=== PATIENT | male | born 1975 | race Caucasian/White ===

== ENCOUNTER 2016-11-20 14:04 | Emergency (ER) | payer BC, OTHER ==
[2016-11-20 14:09] VITALS: BP 137/99
--- NOTE | 2016-11-20 15:21 | ED ---
Back Pain - HPI Summary HPI Summary: 40 M presents with acute on chronic back pain for a month. He has had many back surgeries with a disk laminectomy and TEN device placed. Said pain is the same is the same as before surgery. The pain radiates down his right leg. Denies any urinary or fecal incontinence or saddle anaesthesia. He has tried lidocaine patch, TENS device, muscle relaxers, Tylenol, and ibuprofen. His primary is away for the week. His primary gave him norco 10 and they helped. He is going to be following up with a back specialist in two weeks. - History of Current Complaint Chief Complaint: EDBackInjuryPain Stated Complaint: BACK PAIN Time Seen by Provider: 11/20/16 14:57 Pain Intensity: 9 - Allergies/Home Medications Allergies/Adverse Reactions: Allergies Allergy/AdvReac Type Severity Reaction Status Date / Time Shellfish Allergy Allergy Severe Anaphylatic Verified 09/22/15 10:43 Shock PMH/Surg Hx/FS Hx/Imm Hx Endocrine/Hematology History: Reports: Hx Diabetes Respiratory History: Denies: Hx Asthma Musculoskeletal History: Reports: Hx Back Problems Psychiatric History: Reports: Hx Depression - Cymbalta - Surgical History Surgery Procedure, Year, and Place: Nerve stimulator. spinal fusion. bilateral carpal tunnel Infectious Disease History: No Infectious Disease History: Denies: Hx Clostridium Difficile, Hx Hepatitis, Hx Human Immunodeficiency Virus (HIV), Hx of Known/Suspected MRSA, Hx Shingles, Hx Tuberculosis, Hx Known/ Suspected VRE, Hx Known/Suspected VRSA, History Other Infectious Disease, Traveled Outside the [place] in Last 30 Days - Family History Known Family History: Positive: Cardiac Disease - Social History Alcohol Use: None Alcohol Amount: sober x 8 years Substance Use Type: Reports: Prescribed Substance Use Comment - Amount & Last Used: jayde Smoking Status (MU): Light Every Day Tobacco Smoker Type: Cigarettes Amount Used/How Often: 1/2 PPD Length of Time of Smoking/Using Tobacco: 25 years Have You Smoked in the Last Year: Yes Review of Systems Negative: Fever Negative: Cough Negative: Abdominal Pain Positive: Myalgia - back pain All Other Systems Reviewed And Are Negative: Yes Physical Exam Triage Information Reviewed: Yes Vital Signs On Initial Exam: Initial Vitals Temp Pulse Resp BP Pulse Ox 98.2 F 84 16 137/99 99 11/20/16 14:06 11/20/16 14:06 11/20/16 14:06 11/20/16 14:06 11/20/16 14:06 Vital Signs Reviewed: Yes Appearance: Positive: Well-Appearing Skin: Positive: Warm, Dry Head/Face: Positive: Normal Head/Face Inspection Eyes: Positive: Normal, Conjunctiva Clear ENT: Positive: Normal ENT inspection, Pharynx normal, TMs normal Respiratory/Lung Sounds: Positive: Clear to Auscultation, Breath Sounds Present Cardiovascular: Positive: Normal, RRR Musculoskeletal: Positive: Strength/ROM Intact - of back, Other - pos SLR right , tenderness midline L4-L5 Neurological: Positive: Reflexes Intact Diagnostics - Vital Signs Vital Signs Temp Pulse Resp BP Pulse Ox 11/20/16 14:06 98.2 F 84 16 137/99 99 - Laboratory Lab Statement: Any lab studies that have been ordered have been reviewed, and results considered in the medical decision making process. Back Pain Course/Dx - Course Course Of Treatment: 40 M presents with back pain for a month. Pain is unchanged he has failed conservavity. discussed narcoctic can be addicting but patient primary is out of town, explained can only give 5 day supply need to get more if need be at primary and should follow up with back specialist as scheduled, patient understands and agrees with plan - Diagnoses Differential Diagnosis/HQI/PQRI: Positive: Herniated Disc, Strain, Sprain Provider Diagnoses: Back pain Discharge - Discharge Plan Condition: Good Disposition: HOME Prescriptions: oxyCODONE/Acetamin 10/325(NF) [Percocet 10/325 (NF)] 1 tab PO Q6HR PRN #16 tab MDD 4 PRN Reason: Pain Patient Education Materials: Back Pain (ED) Referrals: Toi Rubalcava MD [Primary Care Provider] - Additional Instructions: Continue ice, heat, muscle relaxers, Ibuprofen every 6 hours for pain and use narcotic for break through pain Follow up with primary within 5 days Return to ED for any new or worsening symptoms
[2016-11-20] MEDS ORDERED: oxyCODONE/Acetamin 5/325 MG* TAB PO ONE (15:24)
== END 2016-11-20 16:09 | disposition home or self-care (01) ==
LOC: ED 14:04
DX: M54.9 Dorsalgia, unspecified (principal); F17.210 Nicotine dependence, cigarettes, uncomplicated
CPT/HCPCS: 99282; A9270-GY

== ENCOUNTER 2017-02-10 15:34 | Emergency (ER) | payer BC ==
[2017-02-10 15:46] VITALS: BP 148/103
== END 2017-02-10 16:48 | disposition left against medical advice (07) ==
LOC: ED 15:34
DX: M54.9 Dorsalgia, unspecified (principal); Z53.21 Procedure and treatment not carried out due to patient leaving prior to being seen by health care provider

== ENCOUNTER 2017-02-11 12:44 | Emergency (ER) | payer BC ==
--- NOTE | 2017-02-11 15:20 | ED ---
Back Pain - HPI Summary HPI Summary: Patient presents to ED with CC of chronic low back pain worse after recent injury last week with twisting and pulling the muscle. Pain does not radiate. Today he is requesting gabapentin and pain medicine for alleviation. He has an indwelling stimulator to the low back and has had surgery. He is unable to have a CT scan d/t the stimulator. He states he has not been on pain medication for several months, stating "I have not relied on pain medication for several months and have only taken it a few times when I have really needed it." He also states he is trying to establish better pain control through Dr. Colmenares's office although he couldn't get in recently since the doctor has been out of town. - History of Current Complaint Chief Complaint: EDBackInjuryPain Stated Complaint: BACK PAIN Time Seen by Provider: 02/11/17 14:14 Hx Obtained From: Patient Onset/Duration: Sudden Onset Onset/Duration: Started Days Ago Timing: Constant Back Pain Location: Is Discrete @ - low back Severity Initially: Moderate Severity Currently: Severe Pain Intensity: 9 Pain Scale Used: 0-10 Numeric Character: Aching, Throbbing Aggravating Symptom(s): Movement, Lifting, Bending, Walking Alleviating Symptom(s): Rest Associated Signs And Symptoms: Positive: Negative - Risk Factors AAA Risk Factors: Negative TAD Risk Factors: Negative Cauda Equina Risk Factors: Negative Epidural Abscess Risk Factors: Negative - Allergies/Home Medications Allergies/Adverse Reactions: Allergies Allergy/AdvReac Type Severity Reaction Status Date / Time Shellfish Allergy Allergy Severe Anaphylatic Verified 02/11/17 12:48 Shock PMH/Surg Hx/FS Hx/Imm Hx Previously Healthy: Yes Endocrine/Hematology History: Reports: Hx Diabetes Respiratory History: Denies: Hx Asthma Musculoskeletal History: Reports: Hx Back Problems Psychiatric History: Reports: Hx Depression - Cymbalta - Surgical History Surgery Procedure, Year, and Place: Nerve stimulator. spinal fusion. bilateral carpal tunnel - Immunization History Hx Pertussis Vaccination: No Immunizations Up to Date: No Infectious Disease History: No Infectious Disease History: Denies: Hx Clostridium Difficile, Hx Hepatitis, Hx Human Immunodeficiency Virus (HIV), Hx of Known/Suspected MRSA, Hx Shingles, Hx Tuberculosis, Hx Known/ Suspected VRE, Hx Known/Suspected VRSA, History Other Infectious Disease, Traveled Outside the [place] in Last 30 Days - Family History Known Family History: Positive: Cardiac Disease - Social History Occupation: Employed Full-time Lives: With Family Alcohol Use: None Alcohol Amount: sober x 8 years Hx Substance Use: Yes Substance Use Type: Reports: Prescribed Substance Use Comment - Amount & Last Used: norco Hx Tobacco Use: No Smoking Status (MU): Light Every Day Tobacco Smoker Type: Cigarettes Amount Used/How Often: 1/2 PPD Length of Time of Smoking/Using Tobacco: 25 years Have You Smoked in the Last Year: Yes Review of Systems Constitutional: Negative Cardiovascular: Negative Respiratory: Negative Gastrointestinal: Negative Positive: no symptoms reported, see HPI Positive: Arthralgia - low back pain Skin: Negative Neurological: Negative Psychological: Normal All Other Systems Reviewed And Are Negative: Yes Physical Exam Triage Information Reviewed: Yes Vital Signs On Initial Exam: Initial Vitals Temp Pulse Resp BP Pulse Ox 97.6 F 107 16 131/91 98 02/11/17 12:48 02/11/17 12:48 02/11/17 12:48 02/11/17 12:48 02/11/17 12:48 Vital Signs Reviewed: Yes Appearance: Positive: Well-Appearing, No Pain Distress, Well-Nourished Skin: Positive: Warm, Skin Color Reflects Adequate Perfusion Neck: Positive: Supple, No Lymphadenopathy Respiratory/Lung Sounds: Positive: Clear to Auscultation, Breath Sounds Present Cardiovascular: Positive: RRR, Pulses are Symmetrical in both Upper and Lower Extremities Musculoskeletal: Positive: Pain @ - low back pain on palpation and with twisting Neurological: Positive: Sensory/Motor Intact, Alert, Oriented to Person Place, Time, Speech Normal Psychiatric: Positive: Normal Diagnostics - Vital Signs Vital Signs Temp Pulse Resp BP Pulse Ox 02/11/17 12:48 97.6 F 107 16 131/91 98 - Laboratory Lab Statement: Any lab studies that have been ordered have been reviewed, and results considered in the medical decision making process. Back Pain Course/Dx - Course Course Of Treatment: Patient requests gabapentin and pain medication for chronic back pain. Patient states he has been trying to see Dr. Colmenares but he has been out of town and he feels he could not wait. Upon i-stopping the patient, it was shown he has been given pain medications throughout the last 6 months here in [facility] and as early as 20 days ago for a 30 day prescription. Provider called Dr. Colmenares who stated patient has been seen there recently and has a pain agreement. Provider will not give pain medication to patient d/t pain agreement and recent dispense of narcotics. Patient stated he "gave back medication" but it is unclear if he meant the most recent pain medicine. Will give rx for gabapentin as requested - 3 days worth - and patient is to follow up with PCP this week. Follow up with Dr. Colmenares office this week. - Diagnoses Differential Diagnosis/HQI/PQRI: Positive: Cauda Equina Syndrome, Compressive Cord Syndrome, Herniated Disc, Sprain Provider Diagnoses: Chronic back pain Discharge - Discharge Plan Condition: Stable Disposition: HOME Prescriptions: Gabapentin CAP(*) [Neurontin 300 CAP(*)] 300 mg PO BID #6 cap MDD 2 Patient Education Materials: Lower Back Exercises (ED) Forms: *Work Release Referrals: Héctor Armendariz MD [Medical Doctor] - Toi Rubalcava MD [Primary Care Provider] - Additional Instructions: Follow up with Dr. Héctor Armendariz's office Ibuprofen 600mg three times daily with meals for discomfort. Gabapentin twice per day for 3 days. Follow up with DR. Colmenares's office this week Return to ED if symptoms worsen or fail to improve, notice worsening swelling, warmth or redness around the joint, develop fever, or pain is uncontrolled with OTC medications. Moist heat to the area for comfort. Warm showers or baths may improve symptoms. It is important to remain mobile as tolerated to prevent stiffening of the joints and delay healing. Follow up with your PCP.
[2017-02-11 15:36] VITALS: BP 127/84
== END 2017-02-11 15:35 | disposition home or self-care (01) ==
LOC: ED 12:44
DX: M54.5 Low back pain (principal); G89.29 Other chronic pain; F17.210 Nicotine dependence, cigarettes, uncomplicated
CPT/HCPCS: 99282

== ENCOUNTER 2017-11-06 06:56 | Emergency (ER) | payer BC, OTHER ==
[2017-11-06] MEDS ORDERED: Ketorolac INJ* 30 MG/ML 1 ML VIAL IV PUSH ONE (07:21)
[2017-11-06] MEDS ORDERED: Piperacillin/Tazobac ADVAN(*) 3.375 GM in NS 0.9% 100 ML* 100 ML IVPB ONE (07:21)
[2017-11-06 07:56] LABS: ABS Basophils 0.1 10^3/ul (0-0.2); ABS Eosinophils 0.2 10^3/ul (0-0.6); ABS Lymphocytes 2.2 10^3/ul (1.0-4.8); ABS Monocytes 0.7 10^3/ul (0-0.8); ABS Neutrophils 5.8 10^3/ul (1.5-7.7); ABS Nucleated RBC 0 10^3/ul; Eosinophil % 2.3 % (0-6); Hematocrit 41 % (42-52); Hemoglobin 14.3 g/dl (14.0-18.0); Lymphocyte % 24.5 % (25-47); Mean Corpuscular HGB Conc 35 g/dl (31-36); Mean Corpuscular Hemoglobin 32 pg (27-31); Mean Corpuscular Volume 92 fL (80-94); Mean Platelet Volume 7 um3 (7.4-10.4); Nucleated Red Blood Cells % 0; Platelet Count 279 10^3/ul (150-450); Red Blood Count 4.42 10^6/ul (4.0-5.4); Red Cell Distribution Width 13 % (10.5-15); White Blood Count 8.9 10^3/ul (3.5-10.8)
[2017-11-06 08:08] LABS: EGFR Non-African American 117.1 (>60)
--- NOTE | 2017-11-06 08:20 | RAD ---
HISTORY: Left hand pain COMPARISONS: None VIEWS: 4, Frontal, lateral, and oblique views of the left hand FINDINGS: BONE DENSITY: Normal. BONES: There is no displaced fracture. JOINTS: There is no arthropathy. ALIGNMENT: There is no dislocation. SOFT TISSUES: Unremarkable. OTHER FINDINGS: None. IMPRESSION: NO ACUTE OSSEOUS INJURY. IF SYMPTOMS PERSIST, RECOMMEND REPEAT IMAGING.
[2017-11-06 10:20] VITALS: BP 140/92
--- NOTE | 2017-11-06 18:05 | ED ---
Main Hutchison Nilda, scribed for Bipin Wylie MD on 11/06/17 at 0711 . Upper Extremity Pain - HPI Summary HPI Summary: This patient is a 41 year old M presenting to [facility] with a chief complaint of constant severe left hand pain since this morning. The patient rates the pain 10 /10 in severity. Symptoms aggravated by movement and alleviated by rest. Patient reports swelling and limited ROM in left index finger secondary to pain. Patient states yesterday he injured his hand with screwdriver last night. - History of Current Complaint Chief Complaint: EDExtremityUpper Stated Complaint: HAND INJURY Hx Obtained From: Patient Onset/Duration: Started Hours Ago, Traumatic, Still Present Timing: Constant Severity Currently: Severe Pain Location: Hand - left Aggravating Factor(s): Movement Alleviating Factor(s): Rest Associated Signs & Symptoms: Positive: Swelling, Other - limited ROM in left index finger secondary to pain. - Allergies/Home Medications Allergies/Adverse Reactions: Allergies Allergy/AdvReac Type Severity Reaction Status Date / Time Shellfish Allergy Allergy Severe Anaphylatic Verified 02/11/17 12:48 Shock PMH/Surg Hx/FS Hx/Imm Hx Endocrine/Hematology History: Reports: Hx Diabetes Respiratory History: Denies: Hx Asthma Musculoskeletal History: Reports: Hx Back Problems Psychiatric History: Reports: Hx Depression - Cymbalta - Surgical History Surgery Procedure, Year, and Place: Nerve stimulator. spinal fusion. bilateral carpal tunnel Infectious Disease History: No Infectious Disease History: Denies: Hx Clostridium Difficile, Hx Hepatitis, Hx Human Immunodeficiency Virus (HIV), Hx of Known/Suspected MRSA, Hx Shingles, Hx Tuberculosis, Hx Known/ Suspected VRE, Hx Known/Suspected VRSA, History Other Infectious Disease, Traveled Outside the [place] in Last 30 Days - Family History Known Family History: Positive: Cardiac Disease - Social History Occupation: Employed Full-time Lives: With Family Alcohol Use: None Alcohol Amount: sober x 8 years Hx Substance Use: Yes Substance Use Type: Reports: Prescribed Substance Use Comment - Amount & Last Used: norco Hx Tobacco Use: No Smoking Status (MU): Light Every Day Tobacco Smoker Type: Cigarettes Amount Used/How Often: 1/2 PPD Length of Time of Smoking/Using Tobacco: 25 years Have You Smoked in the Last Year: Yes Review of Systems Negative: Shortness Of Breath Positive: Decreased ROM - left index finger, Other - left hand pain and swelling All Other Systems Reviewed And Are Negative: Yes Physical Exam - Summary Physical Exam Summary: VITAL SIGNS: Reviewed. GENERAL: Patient is a well-developed and nourished male who is lying comfortable in the stretcher. Patient is not in any acute respiratory distress. HEAD AND FACE: No signs of trauma. No ecchymosis, hematomas or skull depressions. No sinus tenderness. EYES: PERRLA, EOMI x 2, No injected conjunctiva, no nystagmus. EARS: Hearing grossly intact. Ear canals and tympanic membranes are within normal limits. MOUTH: Oropharynx within normal limits. NECK: Supple, trachea is midline, no adenopathy, no JVD, no carotid bruit, no c- spine tenderness, neck with full ROM. CHEST: Symmetric, no tenderness at palpation LUNGS: Clear to auscultation bilaterally. No wheezing or crackles. CVS: Regular rate and rhythm, S1 and S2 present, no murmurs or gallops appreciated. ABDOMEN: Soft, non-tender. No signs of distention. No rebound no guarding, and no masses palpated. Bowel sounds are normal. EXTREMITIES: Left second digit with swelling, tenderness, and decreased ROM. NEURO: Alert and oriented x 3. No acute neurological deficits. Speech is normal and follows commands. SKIN: Dry and warm Triage Information Reviewed: Yes Vital Signs On Initial Exam: Initial Vitals Temp Pulse Resp BP Pulse Ox 97.8 F 93 20 143/94 98 11/06/17 06:58 11/06/17 06:58 11/06/17 06:58 11/06/17 06:58 11/06/17 06:58 Vital Signs Reviewed: Yes Diagnostics - Vital Signs Vital Signs Temp Pulse Resp BP Pulse Ox 11/06/17 06:58 97.8 F 93 20 143/94 98 - Laboratory Lab Results: Lab Results 11/06/17 11/06/17 11/06/17 Range/Units 07:42 07:42 07:42 WBC 8.9 (3.5-10.8) 10^3/ul RBC 4.42 (4.0-5.4) 10^6/ul Hgb 14.3 (14.0-18.0) g/dl Hct 41 L (42-52) % MCV 92 (80-94) fL MCH 32 H (27-31) pg MCHC 35 (31-36) g/dl RDW 13 (10.5-15) % Plt Count 279 (150-450) 10^3/ul MPV 7 L (7.4-10.4) um3 Neut % (Auto) 65.3 (38-83) % Lymph % (Auto) 24.5 L (25-47) % [place] % (Auto) 7.3 (1-9) % Eos % (Auto) 2.3 (0-6) % Baso % (Auto) 0.6 (0-2) % Absolute Neuts (auto) 5.8 (1.5-7.7) 10^3/ul Absolute Lymphs (auto) 2.2 (1.0-4.8) 10^3/ul Absolute Monos (auto) 0.7 (0-0.8) 10^3/ul Absolute Eos (auto) 0.2 (0-0.6) 10^3/ul Absolute Basos (auto) 0.1 (0-0.2) 10^3/ul Absolute Nucleated RBC 0 10^3/ul Nucleated RBC % 0 ESR 34 H (0-14) mm/Hr Sodium 131 L (133-145) mmol/L Potassium 4.4 (3.5-5.0) mmol/L Chloride 100 L (101-111) mmol/L Carbon Dioxide 23 (22-32) mmol/L Anion Gap 8 (2-11) mmol/L BUN 12 (6-24) mg/dL Creatinine 0.74 (0.67-1.17) mg/dL Est GFR ( Amer) 150.7 (>60) Est GFR (Non-Af Amer) 117.1 (>60) BUN/Creatinine Ratio 16.2 (8-20) Glucose 272 H (70-100) mg/dL Lactic Acid 1.2 (0.5-2.0) mmol/L Uric Acid 3.7 L (4.4-7.6) mg/dL Calcium 9.5 (8.6-10.3) mg/dL Total Bilirubin 0.40 (0.2-1.0) mg/dL AST 18 (13-39) U/L ALT 21 (7-52) U/L Alkaline Phosphatase 63 (34-104) U/L C-Reactive Protein 9.35 H (< 5.00) mg/L Total Protein 7.6 (6.4-8.9) g/dL Albumin 4.1 (3.2-5.2) g/dL Globulin 3.5 (2-4) g/dL Albumin/Globulin Ratio 1.2 (1-3) Result Diagrams: 11/06/17 07:42 11/06/17 07:42 Lab Statement: Any lab studies that have been ordered have been reviewed, and results considered in the medical decision making process. - Radiology Left Hand XR Radiology Interpretation Completed By: Radiologist - Hand XR, per radiologist, reveals no acute osseous injury. If symptoms persist, recommend repeat imaging. Dr. Wylie has reviewed this radiology report. Re-Evaluation - Re-Evaluation First Eval Re-Evaluation Time: 08:39 Comment: Pt states UTD with Tetanus Vaccine. Course/Dx - Course Assessment/Plan: This patient is a 41 year old M presenting to [facility] with a chief complaint of constant severe left hand pain since this morning. The patient rates the pain 10/10 in severity. Symptoms aggravated by movement and alleviated by rest. Patient reports swelling and limited ROM in left index finger secondary to pain. Patient states yesterday he injured his hand with screwdriver last night. Pending labs and left hand XR. Hand XR, per radiologist , reveals no acute osseous injury. If symptoms persist, recommend repeat imaging. Dr. Wylie has reviewed this radiology report. [1203] Dr. Jones (ortho ) recommends abx Bactrim, D/C home, and will see pt on Saturday11/08/16. Bloodwork is w/o significant abnormality except for slight increased CRP but no elevated WBC. Imaging is without any pathology. Discussed case with Dr. Jones ( ortho), since I believe pt has infection and has increased risk for tenosynovitis. He recommends pt be given abx and D/C home. He will see pt on Saturday. In ED course, pt was given fluids, Zosyn, and Toradol for pain. Pt is UTD with vaccinations. Pt will be D/C home with Bactrim and Ibuprofen and follow up w/ with ortho. He was given instructions to return to ED if he has more swelling or more pain. The pt is hemodynamically stable, alert and oriented x3. Dx cellulitis, punch injury, and pain in second digit. Pt understands and is agreeable with this plan. - Diagnoses Differential Diagnosis/HQI/PQRI: Positive: Burn, Bursitis, Contusion, Fracture ( Closed), Laceration, Strain, Sprain Provider Diagnoses: Cellulitis, Pain in finger of left hand, punch injury - Physician Notifications Discussed Care of Patient With: George Jones - Ortho Time Discussed With Above Provider: 08:41 Instructed by Provider To: Other - recommends abx Bactrim, D/C home, and will see him on Saturday11/08/16. Discharge - Discharge Plan Condition: Stable Disposition: HOME Prescriptions: Ibuprofen TAB* [Motrin TAB* 600 MG] 600 mg PO Q6H PRN #20 tab PRN Reason: Pain Sulfamethox/Trimethoprim DS* [Bactrim DS 800/160 TAB*] 1 tab PO BID #20 tab Patient Education Materials: Cellulitis (ED) Forms: *Work Release Referrals: George Jones MD [Medical Doctor] - 11/08/17 Additional Instructions: RETURN TO THE EMERGENCY DEPARTMENT FOR CHANGING OR WORSENING SYMPTOMS. The documentation as recorded by the Main persaud Nilda accurately reflects the service I personally performed and the decisions made by , Bipin Wylie MD.
== END 2017-11-06 10:19 | disposition home or self-care (01) ==
LOC: ED 06:56
DX: L03.114 Cellulitis of left upper limb (principal); S69.92XA Unspecified injury of left wrist, hand and finger(s), initial encounter; X58.XXXA Exposure to other specified factors, initial encounter; Y92.9 Unspecified place or not applicable; F17.210 Nicotine dependence, cigarettes, uncomplicated
CPT/HCPCS: 36415; 80053; 83605; 84550; 85025; 85652; 86140; 87040; 96361; 96365; 99282; J1885; J2543

== ENCOUNTER 2018-07-14 01:39 | Emergency (ER) | payer BC ==
[2018-07-14 01:46] VITALS: BP 165/109
[2018-07-14] MEDS ORDERED: Penicillin VK TAB* 250 MG PO ONE (02:06)
[2018-07-14] MEDS ORDERED: Ketorolac INJ* 60 MG/2 ML VIAL IM ONE (02:06)
--- NOTE | 2018-07-14 02:08 | ED ---
Throat Pain/Nasal Congestion - HPI Summary HPI Summary: Patient is a 42-year-old male who presents emergency department for dental pain times several days. Patient states he broke a tooth pain has been increasing since. Patient notes facial swelling, fever, chills. Patient takes hydrocodone chronically for back pain. He states he has also been taking ibuprofen and apply Orajel with minimal relief. No other significant past medical history. Symptoms are mild in severity. Currently does not have a dentist. Touching affected tooth and eating makes symptoms worse. - History of Current Complaint Chief Complaint: EDDentalPain Time Seen by Provider: 07/14/18 02:01 Hx Obtained From: Patient - Allergies/Home Medications Allergies/Adverse Reactions: Allergies Allergy/AdvReac Type Severity Reaction Status Date / Time MS Shellfish Allergy Allergy Severe Anaphylatic Verified 07/14/18 02:06 [Shellfish Allergy] Shock Home Medications: Home Medications buPROPion HCl [Bupropion HCl Sr] 150 mg PO DAILY 07/14/18 [History Confirmed 10/31] PMH/Surg Hx/FS Hx/Imm Hx Previously Healthy: Yes Endocrine/Hematology History: Reports: Hx Diabetes Respiratory History: Denies: Hx Asthma Musculoskeletal History: Reports: Hx Back Problems Psychiatric History: Reports: Hx Depression - Cymbalta - Surgical History Surgery Procedure, Year, and Place: Nerve stimulator. spinal fusion. bilateral carpal tunnel Infectious Disease History: No Infectious Disease History: Denies: Hx Clostridium Difficile, Hx Hepatitis, Hx Human Immunodeficiency Virus (HIV), Hx of Known/Suspected MRSA, Hx Shingles, Hx Tuberculosis, Hx Known/ Suspected VRE, Hx Known/Suspected VRSA, History Other Infectious Disease, Traveled Outside the US in Last 30 Days - Family History Known Family History: Positive: Cardiac Disease - Social History Occupation: Employed Full-time Lives: With Family Alcohol Use: None Alcohol Amount: sober x 8 years Hx Substance Use: Yes Substance Use Type: Reports: Prescribed Substance Use Comment - Amount & Last Used: norco Hx Tobacco Use: No Smoking Status (MU): Light Every Day Tobacco Smoker Type: Cigarettes Amount Used/How Often: 1/2 PPD Length of Time of Smoking/Using Tobacco: 25 years Have You Smoked in the Last Year: Yes Review of Systems Positive: Fever, Chills Positive: Dental Pain Gastrointestinal: Negative Negative: Vomiting, Nausea All Other Systems Reviewed And Are Negative: Yes Physical Exam Triage Information Reviewed: Yes Vital Signs On Initial Exam: Initial Vitals Temp Pulse Resp BP Pulse Ox 97.5 F 97 15 165/109 98 07/14/18 01:43 07/14/18 01:43 07/14/18 01:43 07/14/18 01:43 07/14/18 01:43 Vital Signs Reviewed: Yes Appearance: Positive: Well-Appearing - Patient sitting on bed in no acute distress. Skin: Positive: Warm, Dry Head/Face: Positive: Normal Head/Face Inspection Eyes: Positive: Normal, EOMI Dental: Positive: Other - Poor dentition throughout. Fractured tooth noted to first right bottom molar. Surrounding gums are diffusely erythematous and edematous. Tooth is very tender to palpation. No drainable abscess. No facial swelling, swelling of the tongue, or submandibular edema. No trismus. Neck: Positive: Supple, Nontender, No Lymphadenopathy Neurological: Positive: Normal, CN Intact II-III Psychiatric: Positive: Affect/Mood Appropriate Diagnostics - Vital Signs Vital Signs Temp Pulse Resp BP Pulse Ox 07/14/18 01:43 97.5 F 97 15 165/109 98 - Laboratory Lab Statement: Any lab studies that have been ordered have been reviewed, and results considered in the medical decision making process. EENT Course/Dx - Course Course Of Treatment: Patient presenting with dental fracture and increased pain. He is afebrile and well-appearing. Patient was given a dose of Toradol in the ER and Eugene Ross Advised patient to call a dentist tomorrow for close follow-up appointment. Advised anti-inflammatories such as Motrin as directed. Prescription for penicillin sent to pharmacy. To apply warm compresses. To return to the ER if symptoms change or worsen. Patient understands and agrees with plan. - Differential Diagnoses Differential Diagnoses: Dental Abscess, Dental Caries, Periodontic Abscess, Periodontic Disease - Diagnoses Provider Diagnoses: Tooth fracture, Dentalgia Discharge - Sign-Out/Discharge Documenting (check all that apply): Patient Departure - Discharge Plan Condition: Good Disposition: HOME Prescriptions: Penicillin VK 500 MG TAB(NF) [Penicillin VK 500 mg Tab] 500 mg PO QID #40 tab Patient Education Materials: Dental Abscess (ED), Acute Dental Trauma (ED) Referrals: Toi Rubalcava MD [Primary Care Provider] - Additional Instructions: Schedule an appointment with a dentist Take antibiotic as directed Apply warm compresses to face NSAIDS for pain as directed Return to ER if symptoms change or worsen - Billing Disposition and Condition Condition: GOOD Disposition: Home
== END 2018-07-14 02:19 | disposition home or self-care (01) ==
LOC: ED 01:39
DX: K03.81 Cracked tooth (principal); K08.89 Other specified disorders of teeth and supporting structures; F17.210 Nicotine dependence, cigarettes, uncomplicated
CPT/HCPCS: 96372; 99282; A9270-GY; J1885

== ENCOUNTER 2018-10-15 16:00 | Inpatient (IN) | payer BC ==
[2018-10-15] MEDS ORDERED: Mouth Piece, Nicotine* 1 EACH CARTRIDGE INH PRN (16:34)
[2018-10-15 16:35] LABS: ABS Basophils 0.1 10^3/ul (0-0.2); ABS Eosinophils 0.1 10^3/ul (0-0.6); ABS Monocytes 0.8 10^3/ul (0-0.8); ABS Neutrophils 6.5 10^3/ul (1.5-7.7); ABS Nucleated RBC 0 10^3/ul; Eosinophil % 1.1 %; Hematocrit 46 % (42-52); Hemoglobin 15.9 g/dl (14.0-18.0); Lymphocyte % 34.7 %; Mean Corpuscular HGB Conc 34 g/dl (31-36); Mean Corpuscular Hemoglobin 32 pg (27-31); Mean Corpuscular Volume 94 fL (80-94); Mean Platelet Volume 7.2 fL (7.4-10.4); Nucleated Red Blood Cells % 0; Platelet Count 314 10^3/ul (150-450); Red Blood Count 4.94 10^6/ul (4.00-5.40); Red Cell Distribution Width 13 % (10.5-15); White Blood Count 11.5 10^3/ul (3.5-10.8)
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
[2018-10-15 16:56] LABS: ALT 25 U/L (7-52); AST 17 U/L (13-39); Albumin 4.8 g/dL (3.2-5.2); Albumin/Globulin Ratio 1.3 (1-3); Alkaline Phosphatase 61 U/L (34-104); Anion Gap 9 mmol/L (2-11); BUN/Creatinine Ratio 14.4 (8-20); Blood Urea Nitrogen 13 mg/dL (6-24); CO2 Carbon Dioxide 26 mmol/L (22-32); Calcium 10.1 mg/dL (8.6-10.3); Chloride 98 mmol/L (101-111); Globulin 3.6 g/dL (2-4); Glucose 382 mg/dL (70-100); Potassium 4.1 mmol/L (3.5-5.0); Sodium 133 mmol/L (135-145); Total Protein 8.4 g/dL (6.4-8.9)
[2018-10-15 16:57] LABS: Urine Appearance Clear; Urine Bilirubin Negative (Negative); Urine Blood Negative (Negative); Urine Color Yellow; Urine Glucose 3+(>=500 mg/dL) (Negative); Urine Ketones Trace (Negative); Urine Nitrite Negative (Negative); Urine Protein Negative (Negative); Urine Specific Gravity 1.036 (1.010-1.030); Urine Urobilinogen Negative (Negative)
[2018-10-15 17:07] LABS: Barbiturates Urine Screen None Detected (None Detect); Benzodiazepine Urine Screen None Detected (None Detect); Urine Cannabinoids Screen None Detected (None Detect)
[2018-10-15 17:11] LABS: Acetaminophen < 15 mcg/mL; Alcohol < 10 mg/dL (<10); Salicylate < 2.50 mg/dL (<30)
[2018-10-15 17:26] LABS: TSH (Thyroid Stimulating Horm) 5.37 mcIU/mL (0.34-5.60)
[2018-10-15] MEDS ORDERED: Insulin REGULAR(*) 1 UNITS UNIT SUBCUT ONE (17:37)
[2018-10-15] MEDS ORDERED: HYDROcodone/ACETAMIN 5-325 MG* 1 TAB PO ONE (20:02)
[2018-10-15] MEDS: Nicotine Inhaler* 10 MG AMP INH PRN (20:51)
--- NOTE | 2018-10-15 21:03 | ED ---
Progress - Progress Note Progress Note: RECEIVING SIGN-OUT FROM DR. العراقي AT SHIFT CHANGE PENDING MHE. At 2207: Per hog slaughterer: Pt will be voluntarily admitted per yue Marrero. Dx: depression. - Consult/PCP Time Called: 20:00 Course/Dx - Course Course Of Treatment: RECEIVING SIGN-OUT FROM DR. العراقي AT SHIFT CHANGE PENDING MHE. At 2207: Per hog slaughterer: Pt will be voluntarily admitted per yue Marrero. Dx: depression. - Diagnoses Provider Diagnoses: Depression Discharge - Sign-Out/Discharge Documenting (check all that apply): Patient Departure - ADMIT U, Receiving Sign-Out Receiving patient FROM: Suyapa العراقي - Discharge Plan Condition: Stable Dis[place]R[place] [place]illing Disposition and Condition Condition: STABLE Disposition: Psychiatric Facility [facility] [place] Attestation Statements Document Initiated by Scribe: Yes Documenting Scribe: Pamela You Provider For Whom Scribe is Documenting (Include Credential): Dr. Zion Gonzales MD Scribe Attestation: Pamela Hutchison scribed for Dr. Zion Gonzales MD on 10/16/18 at 0111. Scribe Documentation Reviewed: Yes Provider Attestation: The documentation as recorded by the Pamela persaud accurately reflects the service I personally performed and the decisions made by , Dr. Zion Gonzales MD Status of Scribe Document: Viewed
[2018-10-15] MEDS ORDERED: Gabapentin CAP(*) 300 MG ONE (23:55)
[2018-10-15] MEDS ORDERED: Insulin GLARGINE(*) 1 UNITS UNIT ONE (23:55)
[2018-10-15] MEDS ORDERED: DULoxetine DR CAP* 30 MG CAP.DR ONE (23:55)
[2018-10-16] MEDS ORDERED: HYDROcodone/ACETAMIN 5-325 MG* 1 TAB ONE (00:16)
[2018-10-16] MEDS: buPROPion SR TAB.SR* 150 MG PO SCH ×2 (00:20→08:55)
[2018-10-16] MEDS ORDERED: Nicotine GUM* 2 MG PO PRN (03:05)
[2018-10-16] MEDS ORDERED: Acetaminophen TAB* 325 MG PO PRN (03:05)
[2018-10-16] MEDS ORDERED: Al Hydrox/Mg Hydrox/Simet LIQ* 30 ML UDC PO PRN (03:05)
[2018-10-16 07:41] LABS: HDL Cholesterol 38.4 mg/dL
[2018-10-16] MEDS: Nicotine Inhaler* 10 MG AMP INH PRN ×2 (08:54→18:01)
[2018-10-16] MEDS: Vitamin THERAPEUTIC TAB PO SCH (08:55)
[2018-10-16] MEDS: Gabapentin CAP(*) 300 MG PO SCH ×3 (08:55→20:20)
[2018-10-16] MEDS ORDERED: DULoxetine DR CAP* 60 MG CAP.DR PO SCH (09:00)
[2018-10-16] MEDS: Hydrocodone/Acetamin 10/325 1 TAB PO PRN ×2 (09:26→15:47)
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
[2018-10-16] MEDS: Lithium Carbonate TAB* 300 MG PO SCH (20:21)
[2018-10-16] MEDS: Insulin GLARGINE(*) 1 UNITS UNIT SUBCUT SCH (20:22)
[2018-10-17] MEDS: Hydrocodone/Acetamin 10/325 1 TAB PO PRN ×3 (08:25→20:48)
[2018-10-17] MEDS: FLUoxetine CAP* 10 MG PO SCH (08:26)
[2018-10-17] MEDS: Vitamin THERAPEUTIC TAB PO SCH (08:26)
[2018-10-17] MEDS: Lithium Carbonate TAB* 300 MG PO SCH ×2 (08:26→20:50)
--- NOTE | 2018-10-17 12:00 | PN ---
Subjective - Subjective Date of Service: 10/17/18 Service Type: 11942 Hosp care 15 min low complexity Subjective: Mohit is doing well. He is thoughtful, considering many angles of his need to be more well for himself, his family, and his daughter Nancy. He is so far tolerating the lithium well, observing no ill effects at this time. He also notes that his blood glucose is lower than usual at 162. He wonders if this is because he is taking his insulin as ordered. Still, he states he hates pricking his fingers and injecting himself with insulin. Collateral from his , Toshia, is that his personality has changed in the last three months and that he's more irritable and possibly verbally abusive and has made rash decisions concerning their relationship. Objective - Appearance Appearance: Healthy Appearing Dysmorphic Features: No Hygiene: Normal Grooming: Well Kept - Behavior Psychomotor Activities: Normal Exhibits Abnormal Movement: No - Attitude and Relatedness Attitude and Relatedness: Guarded Eye Contact: Good - Speech Quality: Unpressured Latencies: Normal Quantity: Appropriate - Mood Patient's Decription of Mood: "Okay" - Affect Observed Affect: Fair Affect Consistent with: Dysphoria - Thought Process Patient's Thought Process: Coherent, Goal Directed Thought Content: Yes Passive Wish, Yes Suicidal Planning, No Homicidal Ideation, No Paranoid Ideation - Sensorium Experiencing Hallucinations: No, Sensorium is Clear Type of Hallucinations: Visual: No, Auditory: No, Command: No - Level of Consciousness Level of Consciousness: Alert Orientation: Yes Intact, Yes Orientated to Time, Yes Orientated to Place, Yes Orientated to Person - Impulse Control Impulse Control: Tenuous - Insight and Judgement Insight and Judgement: Fair - Group Participation Particating in Group Activities: Yes - Medication Management Medication Management Adherence: Yes Assessment - Assessment Merits Inpatient Hospitalization: For Immediate Safety Inpatient DSM-V Dx: F31.63 Clinical Impression: Mohit is a 42 year old white man who lives with his and 8-y.o. daughter Nancy with a history of depressive disorder and largely uncontrolled diabetes mellitus who brought himself to the hospital for suicidal ideation wanting to feel better and have an improved life. Plan - Plan Treatment Plan: Name: ARVIND GARCIA Birthdate: 1975 [id number] Continued Medication Management: Start Medication Medications: Current Medications Acetaminophen (Tylenol Tab*) 650 mg PO Q4H PRN PRN Reason: PAIN or TEMP > 101 F Hydrocodone Bitart/Acetaminophen (Aztec 10/325 (Nf)) 1 tab PO Q6H PRN PRN Reason: PAIN Last Admin: 10/17/18 08:25 Dose: 1 tab Al Hydrox/Mg Hydrox/Simethicone (Maalox Plus*) 30 ml PO Q4H PRN PRN Reason: INDIGESTION Device (Nicotine Mouth Piece*) 1 each INH ONCE PRN PRN Reason: CRAVINGS Last Admin: 10/15/18 20:51 Dose: 1 each Fluoxetine HCl (Prozac Cap*) 10 mg PO DAILY ABIGAIL Stop: 10/21/18 12:00 Last Admin: 10/17/18 08:26 Dose: 10 mg Gabapentin (Neurontin Cap(*)) 300 mg PO BEDTIME ABIGAIL Last Admin: 10/16/18 20:20 Dose: 300 mg Insulin Glargine (Lantus(*)) 30 units SUBCUT BEDTIME ABIGAIL Last Admin: 10/16/18 20:22 Dose: 30 units [place] Carbonate ([place] Carbonate Tab*) 300 mg PO BID ABIGAIL Last Admin: 10/17/18 08:26 Dose: 300 mg Multivitamins (Theragran Tab*) 1 tab PO DAILY ABIGAIL Last Admin: 10/17/18 08:26 Dose: 1 tab Nicotine (Nicotine Inhaler*) 10 mg INH Q2H PRN PRN Reason: CRAVING Last Admin: 10/16/18 18:01 Dose: 10 mg Nicotine Polacrilex (Nicotine Gum*) 2 mg PO Q2H PRN PRN Reason: CRAVING - Discharge Plan Discharge Plan: Outpatient Follow Up Outpatient Program: [facility] Additional Comments: Mohit will start takiing lithium 300 mg BID. We are also stopping both Cymbalta and Wellbutrin. We are instituting a 10 mg Prozac "taper" to reduce what he calls "voomies" which sound in physical and temporal experience to be serotonin withdrawal effects. He will stay over the weekend and potentially into Saturday or Saturday. Blood levels will be drawn Saturday morning.
[2018-10-17] MEDS: Insulin GLARGINE(*) 1 UNITS UNIT SUBCUT SCH (20:44)
[2018-10-17] MEDS: Gabapentin CAP(*) 300 MG PO SCH (20:49)
[2018-10-18] MEDS: Lithium Carbonate TAB* 300 MG PO SCH ×2 (08:04→20:11)
[2018-10-18] MEDS: FLUoxetine CAP* 10 MG PO SCH (08:04)
[2018-10-18] MEDS: Vitamin THERAPEUTIC TAB PO SCH (08:04)
[2018-10-18] MEDS: Hydrocodone/Acetamin 10/325 1 TAB PO PRN ×3 (08:04→20:11)
[2018-10-18] MEDS: Nicotine Inhaler* 10 MG AMP INH PRN (08:05)
[2018-10-18] MEDS ORDERED: Ibuprofen TAB* 800 MG PO ONE (12:50)
[2018-10-18] MEDS ORDERED: Ibuprofen TAB* 800 MG PO PRN (14:39)
[2018-10-18] MEDS: Insulin GLARGINE(*) 1 UNITS UNIT SUBCUT SCH (20:08)
[2018-10-18] MEDS: Gabapentin CAP(*) 300 MG PO SCH (20:11)
[2018-10-19] MEDS: Hydrocodone/Acetamin 10/325 1 TAB PO PRN ×3 (07:17→20:01)
[2018-10-19] MEDS: Lithium Carbonate TAB* 300 MG PO SCH ×2 (07:18→20:01)
[2018-10-19] MEDS: FLUoxetine CAP* 10 MG PO SCH (07:18)
[2018-10-19] MEDS: Vitamin THERAPEUTIC TAB PO SCH (07:19)
--- NOTE | 2018-10-19 16:51 | PN ---
Subjective - Subjective Date of Service: 10/19/18 Service Type: 91293 Hosp care 15 min low complexity Subjective: Patient was in good mood and pleasant during the assessment although was complaining of feeling somewhat hyper with the addition of Prozac. Otherwise complementary about the treatments he received and looking forwards ti go home soon. Denies SI/HI or psychosis. Objective - Appearance Appearance: Healthy Appearing Dysmorphic Features: No Hygiene: Normal Grooming: Well Kept - Behavior Psychomotor Activities: Normal Exhibits Abnormal Movement: No - Attitude and Relatedness Attitude and Relatedness: Appropriate Eye Contact: Good - Speech Quality: Unpressured Latencies: Normal Quantity: Appropriate - Mood Patient's Decription of Mood: "Fine" - Affect Observed Affect: Non-labile Affect Consistent with: Euthymia - Thought Process Patient's Thought Process: Coherent, Goal Directed Thought Content: No Passive Wish, No Suicidal Planning, No Homicidal Ideation, No Paranoid Ideation - Sensorium Experiencing Hallucinations: No, Sensorium is Clear Type of Hallucinations: Visual: No, Auditory: No, Command: No - Level of Consciousness Level of Consciousness: Alert Orientation: Yes Intact, Yes Orientated to Time, Yes Orientated to Place, Yes Orientated to Person - Impulse Control Impulse Control: Intact - Insight and Judgement Insight and Judgement: Fair - Group Participation Particating in Group Activities: Yes - Medication Management Medication Management Adherence: Yes Assessment - Assessment Merits Inpatient Hospitalization: [facility], For Discharge Planning Inpatient DSM-V Dx: F31.63 Clinical Impression: Mohit is a 42 year old white man who lives with his and 8-y.o. daughter Nancy with a history of depressive disorder and largely uncontrolled diabetes mellitus who brought himself to the hospital for suicidal ideation wanting to feel better and have an improved life. Plan - Plan Treatment Plan: Name: ARVIND GARCIA Birthdate: 1975 [id number] Continued Medication Management: Continue Outpt Medication Medications: Current Medications Acetaminophen (Tylenol Tab*) 650 mg PO Q4H PRN PRN Reason: PAIN or TEMP > 101 F Hydrocodone Bitart/Acetaminophen ([place] 10/325 (Nf)) 1 tab PO Q6H PRN PRN Reason: PAIN Last Admin: 10/19/18 13:58 Dose: 1 tab Al Hydrox/Mg Hydrox/Simethicone (Maalox Plus*) 30 ml PO Q4H PRN PRN Reason: INDIGESTION Device (Nicotine Mouth Piece*) 1 each INH ONCE PRN PRN Reason: CRAVINGS Last Admin: 10/15/18 20:51 Dose: 1 each Fluoxetine HCl (Prozac Cap*) 10 mg PO DAILY ABIGAIL Stop: 10/21/18 12:00 Last Admin: 10/19/18 07:18 Dose: 10 mg Gabapentin (Neurontin Cap(*)) 300 mg PO BEDTIME ABIGAIL Last Admin: 10/18/18 20:11 Dose: 300 mg Ibuprofen (Motrin Tab*) 800 mg PO Q8H PRN PRN Reason: PAIN Last Admin: 10/19/18 09:59 Dose: 800 mg Insulin Glargine (Lantus(*)) 30 units SUBCUT BEDTIME [facility] Last Admin: 10/18/18 20:08 Dose: 30 units [place] Carbonate ([place] Carbonate Tab*) 300 mg PO BID [facility] Last Admin: 10/19/18 07:18 Dose: 300 mg Multivitamins (Theragran Tab*) 1 tab PO DAILY [facility] Last Admin: 10/19/18 07:19 Dose: 1 tab Nicotine (Nicotine Inhaler*) 10 mg INH Q2H PRN PRN Reason: CRAVING Last Admin: 10/18/18 08:05 Dose: 10 mg Nicotine Polacrilex (Nicotine Gum*) 2 mg PO Q2H PRN PRN Reason: CRAVING - Discharge Plan Discharge Plan: Outpatient Follow Up Outpatient Program: [facility]
[2018-10-19] MEDS: Gabapentin CAP(*) 300 MG PO SCH (20:01)
[2018-10-19] MEDS: Insulin GLARGINE(*) 1 UNITS UNIT SUBCUT SCH (20:03)
[2018-10-20] MEDS: Hydrocodone/Acetamin 10/325 1 TAB PO PRN ×2 (05:10→11:04)
[2018-10-20 07:47] VITALS: BP 135/82
[2018-10-20] MEDS: FLUoxetine CAP* 10 MG PO SCH (07:48)
[2018-10-20] MEDS: Lithium Carbonate TAB* 300 MG PO SCH (07:49)
[2018-10-20] MEDS: Vitamin THERAPEUTIC TAB PO SCH (07:49)
[2018-10-20 07:51] LABS: Lithium 0.21 mmol/L (0.6-1.2)
== END 2018-10-20 13:31 | disposition home or self-care (01) | DRG 753 ==
LOC: ED 16:00 → BSU 22:27
PROVIDERS: ADMIT Psychiatry & Neurology Psychiatry; ATTEND Psychiatry & Neurology Psychiatry
DX: F31.63 Bipolar disorder, current episode mixed, severe, without psychotic features (principal); R45.851 Suicidal ideations; M51.36 Other intervertebral disc degeneration, lumbar region; E11.65 Type 2 diabetes mellitus with hyperglycemia; Z79.4 Long term (current) use of insulin; G89.29 Other chronic pain; Z62.810 Personal history of physical and sexual abuse in childhood; Z87.820 Personal history of traumatic brain injury; Z81.8 Family history of other mental and behavioral disorders
CPT/HCPCS: 36415; 80053; 80061; 80178; 80307; 80320; 80329; 81003; 82947; 83036; 83721; 84443; 85025; 99222; 99231; 99284; A9270-GY; G0480

== ENCOUNTER 2019-05-05 12:24 | Emergency (ER) | payer MEDICAID, OTHER ==
--- OUTSIDE RECORDS SUMMARY | 2019-05-05 12:37 | XMS REPORT | Continuity of Care Document ---
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 Primary Care Physician Unavailable Payers Date Identification Numbers Payment Provider Subscriber Effective: 2019 Policy Number: [id number] [facility] Taras Callejas PayID: [id number] [employer] Claims Dept [address] [place] [address] Effective: 2018 Policy Number: [id number] /BS [facility] Taras Callejas Expires: 2018 PayID: [id number] [address] [address] Effective: 2018 Policy Number: [id number] Medicaid [place] Taras Callejas Expires: 2019 PayID: [id number] [address] [place] [address] Expires: 2018 Policy Number: [id number] /BS [facility] Taras Callejas PayID: [id number] [address] [address] Problems Active Problems Provider Date Type 2 diabetes mellitus Solomon Colmenares DO, MPH Onset: 12/05/2016 Family History Date Family Member(s) Observation Comments Father 72 Mother 62 Children 2 Siblings None Grandchildren None Social History Type Date Description Comments Sex Unknown Marital Status 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 Cigarette Use Current Cigarette Smoker 1/2 Pack Daily ETOH Use Denies alcohol use Tobacco Use Start: Unknown Patient is a current smoker, smokes every day Smoking Status Reviewed: 07/01/19 Patient is a current smoker, smokes every day Allergies, Adverse Reactions, Alerts Description No Known Drug Allergies Medications Active Medications SIG Qnty Indications Ordering Provider Date Gabapentin si by mouth 90Solomon Novoa DO, 02/19/2017 300mg three times a day MPH Capsules as directed Oxycodone HCL si-2 by mouth 180tabs Solomon Colmenares DO, 01/22/2017 10mg every 4-6 hours MPH Tablets as directed chronic pain patient Lantus Solostar bid Unknown 100Unit/ML Solution Pen-Inject [place] Carbonate ER si by mouth Unknown every day as 300mg Tablets ER directed Trulicity Unknown 0.75mg/0.5ML Solution Pen-Inject History Medications Gabapentin take 1 capsules by 90Solomon Novoa DO, 10/15/2018 - 100mg mouth every 8 MPH 11/13/2018 Capsules hours for chronic pain. Gabapentin si by mouth 90Solomon Novoa DO, 06/02/2018 - 300mg three times a day MPH 10/15/2018 Capsules as directed Gabapentin si by mouth 90Solomon Novoa DO, 02/19/2017 - 300mg three times a day MPH 05/19/2018 Capsules as directed Oxycodone HCL si by mouth 120tabs Solomon Colmenares DO, 01/22/2017 - 10mg every 6 to 8 hours MPH 11/13/2018 Tablets as directed chronic pain patient Oxycontin take one tablet by 30tabs Solomon Colmenares DO, 01/07/2017 - 10mg Tab ER mouth every 12 MPH 01/22/2017 12H Abuse-Det hours as directed chronic pain. Morphine Sulfate ER si by mouth 60tabs Solomon Colmenares DO, 01/02/2017 - every 12 hours as MPH 01/07/2017 15mg Tablets ER directed chronic pain patient Oxycontin take one tablet by 30tabs Solomon Colmenares DO, 12/31/2016 - 10mg Tab ER mouth every 12 MPH 01/02/2017 12H Abuse-Det hours as directed chronic pain. Oxycodone HCL si by mouth 90tabs Solomon Colmenares DO, 12/27/2016 - 10mg every 8 hours as MPH 12/31/2016 Tablets directed chronic pain patient Oxymorphone HCL 1 by mouth every 8 90tabs Solomon Colmenares DO, 12/18/2016 - 10mg hours as directed MPH 12/27/2016 Tablets chronic pain patient Oxycodone HCL si by mouth 90tabs Solomon Colmenares DO, 12/05/2016 - 10mg every 8 hours as MPH 12/18/2016 Tablets directed chronic pain patient Lantus si units once Unknown - 100Unit/ML a day 11/13/2018 Solution Novolin 70/30 40 units before Unknown - meals 11/13/2018 (70-30)100Unit/ML Suspension Gabapentin si by mouth q 8 Unknown - 800mg hrs as directed 02/19/2017 Tablets Duloxetine HCL take 2 by mouth Unknown - 60mg every evening as 11/13/[address] Goodwin directed chronic pain. Bupropion HCL ER (SR) 1 by mouth twice Unknown - daily 11/13/2018 150mg Tablets ER 12HR Oxycodone-Acetaminoph take 1 tablet by Unknown - en mouth every 6 12/05/2016 10-325mg Tablets hours Farxiga Unknown - 10mg Tablets 01/13/2019 [place] Carbonate ER si by mouth Solomon Colmenares DO, - every hours as MPH 02/11/2019 450mg Tablets ER directed Vital Signs Date Vital Result Comment 04/13/2019 9:44am BP Systolic 130 mmHg BP Diastolic 76 mmHg Heart Rate 78 /min Respiratory Rate 18 /min Height 69 inches 5'9" Weight 191.00 lb Pain Level 9 Pain at this time. Pain Level With Medicine 8 on average with meds Pain Level Without Medicine 10 07/23 without meds BMI (Body Mass Index) 28.2 kg/m2 03/13/2019 11:28am BP Systolic 128 mmHg BP Diastolic 80 mmHg Heart Rate 84 /min Respiratory Rate 20 /min Height 69 inches 5'9" Weight 188.00 lb Pain Level 8 Pain at this time. Pain Level With Medicine 7 on average with meds Pain Level Without Medicine 9 06/23 without meds BMI (Body Mass Index) 27.8 kg/m2 02/11/2019 10:21am BP Systolic 142 mmHg BP Diastolic 86 mmHg Heart Rate 82 /min Respiratory Rate 20 /min Height 69 inches 5'9" Weight 192.00 lb Pain Level 8 Pain at this time. Pain Level With Medicine 6 on average with meds Pain Level Without Medicine 9 07/23 without meds BMI (Body Mass Index) 28.4 kg/m2 01/13/2019 9:37am BP Systolic 142 mmHg BP Diastolic 86 mmHg Heart Rate 82 /min Respiratory Rate 20 /min Height 69 inches 5'9" Weight 198.00 lb Pain Level 9 Pain at this time. Pain Level With Medicine 7 on average with meds Pain Level Without Medicine 10 07/23 without meds BMI (Body Mass Index) 29.2 kg/m2 12/15/2018 9:12am BP Systolic 130 mmHg BP Diastolic 86 mmHg Heart Rate 84 /min Respiratory Rate 20 /min Height 69 inches 5'9" Weight 198.00 lb Pain Level 8 Pain at this time. Pain Level With Medicine 7 on average with meds Pain Level Without Medicine 10 07/23 without meds BMI (Body Mass Index) 29.2 kg/m2 11/13/2018 10:26am BP Systolic 128 mmHg BP Diastolic 86 mmHg Heart Rate 84 /min Respiratory Rate 20 /min Height 69 inches 5'9" Weight 194.00 lb Pain Level 7 Pain at this time. Pain Level With Medicine 7 on average with meds Pain Level Without Medicine 10 07/23 without meds BMI (Body Mass Index) 28.6 kg/m2 10/15/2018 10:28am BP Systolic 132 mmHg BP Diastolic 84 mmHg Heart Rate 88 /min Respiratory Rate 20 /min Height 69 inches 5'9" Weight 194.00 lb Pain Level 9 Pain at this time. Pain Level With Medicine 8 on average with meds Pain Level Without Medicine 10 07/23 without meds BMI (Body Mass Index) 28.6 kg/m2 09/15/2018 3:25pm BP Systolic 148 mmHg BP Diastolic 82 mmHg Heart Rate 88 /min Respiratory Rate 20 /min Height 69 inches 5'9" Weight 190.00 lb Pain Level 8 Pain at this time. Pain Level With Medicine 6 on average with meds Pain Level Without Medicine 10 07/23 without meds BMI (Body Mass Index) 28.1 kg/m2 08/15/2018 9:09am BP Systolic 140 mmHg BP Diastolic 78 mmHg Heart Rate 80 /min Respiratory Rate 20 /min Height 69 inches 5'9" Weight 190.00 lb Pain Level 8 Pain at this time. Pain Level With Medicine 7 on average with meds Pain Level Without Medicine 10 07/23 without meds BMI (Body Mass Index) 28.1 kg/m2 07/07/2018 3:04pm BP Systolic 142 mmHg BP Diastolic 80 mmHg Heart Rate 88 /min Respiratory Rate 20 /min Height 69 inches 5'9" Weight 186.00 lb Pain Level 9 Pain at this time. Pain Level With Medicine 7 on average with meds Pain Level Without Medicine 10 07/23 without meds BMI (Body Mass Index) 27.5 kg/m2 06/18/2018 9:09am BP Systolic 130 mmHg BP Diastolic 78 mmHg Heart Rate 74 /min Respiratory Rate 20 /min Height 69 inches 5'9" Weight 186.00 lb Pain Level 6 Pain at this time. Pain Level With Medicine 5 on average with meds Pain Level Without Medicine 10 07/23 without meds BMI (Body Mass Index) 27.5 kg/m2 05/19/2018 9:21am BP Systolic 130 mmHg BP Diastolic 74 mmHg Heart Rate 76 /min Respiratory Rate 20 /min Height 69 inches 5'9" Weight 194.00 lb Pain Level 8 Pain at this time. Pain Level With Medicine 7 on average with meds Pain Level Without Medicine 07/23 without meds BMI (Body Mass Index) 28.6 kg/m2 04/11/2018 2:06pm BP Systolic 148 mmHg BP Diastolic 84 mmHg Heart Rate 74 /min Respiratory Rate 20 /min Height 69 inches 5'9" Weight 190.00 lb Pain Level 7 Pain at this time. Pain Level With Medicine 6 on average with meds Pain Level Without Medicine 10 07/23 without meds BMI (Body Mass Index) 28.1 kg/m2 03/19/2018 3:55pm BP Systolic 136 mmHg BP Diastolic 86 mmHg Heart Rate 84 /min Respiratory Rate 20 /min Height 69 inches 5'9" Weight 190.00 lb Pain Level 8 Pain at this time. Pain Level With Medicine 7 on average with meds Pain Level Without Medicine 10 07/23 without meds BMI (Body Mass Index) 28.1 kg/m2 02/11/2018 2:30pm BP Systolic 140 mmHg BP Diastolic 78 mmHg Heart Rate 82 /min Respiratory Rate 20 /min Height 69 inches 5'9" Weight 198.00 lb Pain Level 7 Pain at this time. Pain Level With Medicine 6 on average with meds Pain Level Without Medicine 10 07/23 without meds BMI (Body Mass Index) 29.2 kg/m2 01/16/2018 9:29am BP Systolic 140 mmHg BP Diastolic 86 mmHg Heart Rate 84 /min Respiratory Rate 20 /min Height 69 inches 5'9" Weight 198.00 lb Pain Level 9 Pain at this time. Pain Level With Medicine 7 on average with meds Pain Level Without Medicine 10 07/23 without meds BMI (Body Mass Index) 29.2 kg/m2 01/01/2018 2:56pm BP Systolic 128 mmHg BP Diastolic 86 mmHg Heart Rate 82 /min Respiratory Rate 20 /min Height 69 inches 5'9" Weight 198.00 lb Pain Level 8 Pain at this time. Pain Level With Medicine 7 on average with meds Pain Level Without Medicine 10 07/23 without meds BMI (Body Mass Index) 29.2 kg/m2 12/02/2017 2:47pm BP Systolic 144 mmHg BP Diastolic 90 mmHg Heart Rate 84 /min Respiratory Rate 20 /min Height 69 inches 5'9" Weight 198.00 lb Pain Level 7 Pain at this time. Pain Level With Medicine 7 on average with meds Pain Level Without Medicine 07/23 without meds BMI (Body Mass Index) 29.2 kg/m2 11/01/2017 1:12pm BP Systolic 130 mmHg BP Diastolic 78 mmHg Heart Rate 84 /min Respiratory Rate 20 /min Height 69 inches 5'9" Weight 196.00 lb Pain Level 7 Pain at this time. Pain Level With Medicine 6 on average with meds Pain Level Without Medicine 10 07/23 without meds BMI (Body Mass Index) 28.9 kg/m2 10/02/2017 2:48pm BP Systolic 130 mmHg BP Diastolic 78 mmHg Heart Rate 74 /min Respiratory Rate 20 /min Height 69 inches 5'9" Weight 195.00 lb Pain Level 6 Pain at this time. Pain Level With Medicine 5 on average with meds Pain Level Without Medicine 10 07/23 without meds BMI (Body Mass Index) 28.8 kg/m2 09/03/2017 2:50pm BP Systolic 148 mmHg BP Diastolic 86 mmHg Heart Rate 80 /min Respiratory Rate 20 /min Height 69 inches 5'9" Weight 195.00 lb Pain Level 8 Pain at this time. Pain Level With Medicine 7 on average with meds Pain Level Without Medicine 10 07/23 without meds BMI (Body Mass Index) 28.8 kg/m2 08/01/2017 2:40pm BP Systolic 140 mmHg BP Diastolic 86 mmHg Heart Rate 84 /min Respiratory Rate 20 /min Height 69 inches 5'9" Weight 195.00 lb Pain Level 7 Pain at this time. Pain Level With Medicine 7 on average with meds Pain Level Without Medicine 10 07/23 without meds BMI (Body Mass Index) 28.8 kg/m2 07/04/2017 2:26pm BP Systolic 136 mmHg BP Diastolic 80 mmHg Heart Rate 78 /min Respiratory Rate 20 /min Height 69 inches 5'9" Weight 194.00 lb Pain Level 7 Pain at this time. Pain Level With Medicine 7 on average with meds Pain Level Without Medicine 10 07/23 without meds BMI (Body Mass Index) 28.6 kg/m2 06/05/2017 2:54pm BP Systolic 138 mmHg BP Diastolic 80 mmHg Heart Rate 80 /min Respiratory Rate 16 /min Height 69 inches 5'9" Weight 201.00 lb Pain Level 7 710, Pain at this time. Pain Level With Medicine 7 04/22, on average with meds Pain Level Without Medicine 10 07/23 without meds BMI (Body Mass Index) 29.7 kg/m2 05/06/2017 3:40pm BP Systolic 130 mmHg BP Diastolic 74 mmHg Heart Rate 76 /min Respiratory Rate 20 /min Height 69 inches 5'9" Weight 198.00 lb Pain Level 7 Pain at this time. Pain Level With Medicine 7 on average with meds Pain Level Without Medicine 10 07/23 without meds BMI (Body Mass Index) 29.2 kg/m2 04/05/2017 10:43am BP Systolic 126 mmHg BP Diastolic 84 mmHg Heart Rate 82 /min Respiratory Rate 18 /min Height 69 inches 5'9" Weight 192.00 lb Pain Level 8 Pain at this time. Pain Level With Medicine 7 on average with meds Pain Level Without Medicine 10 07/23 without meds BMI (Body Mass Index) 28.4 kg/m2 03/19/2017 11:03am BP Systolic 138 mmHg BP Diastolic 82 mmHg Heart Rate 78 /min Respiratory Rate 20 /min Height 69 inches 5'9" Weight 191.00 lb Pain Level 8 Pain at this time. Pain Level With Medicine 6 on average with meds Pain Level Without Medicine 10 07/23 without meds BMI (Body Mass Index) 28.2 kg/m2 02/19/2017 3:25pm BP Systolic 146 mmHg BP Diastolic 90 mmHg Heart Rate 88 /min Respiratory Rate 20 /min Height 69 inches 5'9" Weight 191.00 lb Pain Level 7 Pain at this time. Pain Level With Medicine 5 on average with meds Pain Level Without Medicine 10 07/23 without meds BMI (Body Mass Index) 28.2 kg/m2 01/22/2017 3:30pm BP Systolic 136 mmHg BP Diastolic 80 mmHg Heart Rate 76 /min Respiratory Rate 18 /min Height 69 inches 5'9" Weight 194.00 lb Pain Level 8 Pain at this time. Pain Level With Medicine 6 on average with meds Pain Level Without Medicine 10 07/23 without meds Pain Level After Procedure 4 BP Systolic Recheck 122 mmHg Pulse:74 BP Diastolic Recheck 78 mmHg Pulse:74 BMI (Body Mass Index) 28.6 kg/m2 12/31/2016 4:00pm BP Systolic 140 mmHg BP Diastolic 86 mmHg Heart Rate 84 /min Respiratory Rate 20 /min Height 69 inches 5'9" Weight 194.00 lb Pain Level 8 Pain at this time. Pain Level With Medicine 8 on average with meds Pain Level Without Medicine 10 07/23 without meds Pain Level After Procedure 6 BP Systolic Recheck 138 mmHg Pulse: 92 BP Diastolic Recheck 78 mmHg Pulse: 92 BMI (Body Mass Index) 28.6 kg/m2 12/18/2016 3:12pm BP Systolic 140 mmHg BP Diastolic 86 mmHg Heart Rate 84 /min Respiratory Rate 20 /min Height 69 inches 5'9" Weight 200.00 lb Pain Level 8 Pain at this time. Pain Level With Medicine 7 on average with meds Pain Level Without Medicine 10 07/23 without meds BMI (Body Mass Index) 29.5 kg/m2 12/05/2016 9:26am BP Systolic 142 mmHg BP Diastolic 86 mmHg Heart Rate 88 /min Respiratory Rate 18 /min doing well today Height 69 inches 5'9" Weight 200.00 lb Pain Level 9 Pain at this time. Pain Level Without Medicine 10 07/23 without meds BMI (Body Mass Index) 29.5 kg/m2 Procedures Date Code Description Status 03/13/2019 44316 Omt 3-4 Body Regions Completed 02/11/2019 56493 Omt 5-6 Body Regions Completed 01/13/2019 29387 Omt 5-6 Body Regions Completed 12/15/2018 72993 Omt 3-4 Body Regions Completed 12/15/2018 40518 Therapeutic, Prophylactic Or Diagnostic Injection Subq/Im Completed 11/13/2018 04898 Omt 3-4 Body Regions Completed 07/07/2018 40317 Omt 3-4 Body Regions Completed 06/18/2018 96530 Omt 3-4 Body Regions Completed 04/11/2018 06467 Omt 5-6 Body Regions Completed 03/19/2018 42440 Omt 3-4 Body Regions Completed 01/16/2018 37376 Omt 5-6 Body Regions Completed 01/01/2018 37713 Therapeutic, Prophylactic Or Diagnostic Injection Subq/Im Completed 12/02/2017 23945 Omt 5-6 Body Regions Completed 12/02/2017 16669 Therapeutic, Prophylactic Or Diagnostic Injection Subq/Im Completed 11/01/2017 48462 Omt 3-4 Body Regions Completed 09/03/2017 51340 Omt 3-4 Body Regions Completed 07/04/2017 93561 Omt 3-4 Body Regions Completed 05/06/2017 89153 Omt 3-4 Body Regions Completed 03/19/2017 87546 Omt 1-2 Body Regions Completed 01/22/201747885 Inject Tendon/Ligament Completed 01/22/201715588 Inject Tendon/Ligament Completed 01/22/201745231 Inject Tendon/Ligament Completed 01/22/201792119 Inject Tendon/Ligament Completed 01/22/201769606 Injection, Tendon Origin/Insertion Completed 01/22/201774751 Injection, Tendon Origin/Insertion Completed 01/22/201763418 Injection, Tendon Origin/Insertion Completed 01/22/201776293 Injection, Tendon Origin/Insertion Completed 01/22/201787469 Injection, Single Or Mutiple Trigger Points One Or Two Completed Muscles 12/31/201652379 Injection, Single Or Mutiple Trigger Points One Or Two Completed Muscles 12/31/201663656 Injection, Tendon Origin/Insertion Completed 12/31/201642443 Injection, Tendon Origin/Insertion Completed 12/31/201634400 Inject Tendon/Ligament Completed 12/31/201614571 Inject Tendon/Ligament Completed 12/31/2016 Inject Tendon/Ligament Completed 12/31/2016 Inject Tendon/Ligament Completed Encounters Type Date Location Provider Dx Diagnosis Office Visit 03/13/2019 Main Office as Solomon Colmenares G89.28 Other chronic 11:00a Of 11/14/13 DO, MPH postprocedural pain M54.2 Cervicalgia M99.01 Segmental and somatic dysfunction of cervical region M54.5 Low back pain M99.03 Segmental and somatic dysfunction of lumbar region M54.6 Pain in thoracic spine M99.02 Segmental and somatic dysfunction of thoracic region Z79.891 USP (current) use of opiate analgesic Office Visit 02/11/2019 9:45a Main Office Solomon Colmenares G89.28 Other chronic as Of 11/14/13 DO, MPH postprocedural pain M54.5 Low back pain M99.03 Segmental and somatic dysfunction of lumbar region M54.6 Pain in thoracic spine M99.02 Segmental and somatic dysfunction of thoracic region M54.2 Cervicalgia M99.01 Segmental and somatic dysfunction of cervical region M53.3 Sacrococcygeal disorders, not elsewhere classified M99.04 Segmental and somatic dysfunction of sacral region M25.552 Pain in left hip M25.551 Pain in right hip 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 M99.05 Segmental and somatic dysfunction of pelvic region Z96.89 Presence of other specified functional implants F31.89 Other bipolar disorder Office Visit 01/13/2019 9:45a Main Office Solomon Colmenares G89.28 Other chronic as Of 11/14/13 DO, MPH postprocedural pain M54.2 Cervicalgia M99.01 Segmental and somatic dysfunction of cervical region M54.6 Pain in thoracic spine M99.02 Segmental and somatic dysfunction of thoracic region M54.5 Low back pain M99.03 Segmental and somatic dysfunction of lumbar region M53.3 Sacrococcygeal disorders, not elsewhere classified M99.04 Segmental and somatic dysfunction of sacral region M25.552 Pain in left hip M25.551 Pain in right hip Z79.891 USP (current) use of opiate analgesic M99.05 Segmental and somatic dysfunction of pelvic region Office Visit 12/15/2018 9:00a Main Office Solomon Colmenares, G89.28 Other chronic as Of 11/14/13 DO, MPH postprocedural pain M54.5 Low back pain M99.03 Segmental and somatic dysfunction of lumbar region M54.6 Pain in thoracic spine M99.02 Segmental and somatic dysfunction of thoracic region M54.2 Cervicalgia M99.01 Segmental and somatic dysfunction of cervical region R53.83 Other fatigue 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 Office Visit 11/13/2018 10:00a Main Office Solomon Colmenares, G89.28 Other chronic as Of 11/14/13 DO, MPH postprocedural pain M54.2 Cervicalgia M99.01 Segmental and somatic dysfunction of cervical region M54.6 Pain in thoracic spine M99.02 Segmental and somatic dysfunction of thoracic region M54.5 Low back pain M99.03 Segmental and somatic dysfunction of lumbar region M53.3 Sacrococcygeal disorders, not elsewhere classified M99.04 Segmental and somatic dysfunction of sacral region M25.552 Pain in left hip M99.05 Segmental and somatic dysfunction of pelvic region Z79.891 USP (current) use of opiate analgesic I10 Essential (primary) hypertension K21.9 Gastro-esophageal reflux disease without esophagitis Z96.89 Presence of other specified functional implants Office Visit 10/15/2018 10:30a Main Office Solomon Colmenares, G89.28 Other chronic as Of 11/14/13 DO, MPH postprocedural pain M54.5 Low back pain M54.6 Pain in thoracic spine M54.2 Cervicalgia M99.01 Segmental and somatic dysfunction of cervical region Z79.891 USP (current) use of opiate analgesic Office Visit 09/15/2018 3:30p Main Office Solomon Colmenares, G89.28 Other chronic as Of 11/14/13 DO, MPH postprocedural pain M54.5 Low back pain M54.6 Pain in thoracic spine Z79.891 USP (current) use of opiate analgesic Office Visit 08/15/2018 9:15a Main Office Solomon Colmenares, G89.28 Other chronic as Of 11/14/13 DO, MPH postprocedural pain M54.5 Low back pain M54.6 Pain in thoracic spine M54.2 Cervicalgia 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 Office Visit 07/07/2018 3:15p Main Office Solomon Colmenares, G89.28 Other chronic as Of 11/14/13 DO, MPH postprocedural pain M54.5 Low back pain M99.03 Segmental and somatic dysfunction of lumbar region M54.6 Pain in thoracic spine M99.02 Segmental and somatic dysfunction of thoracic region M54.2 Cervicalgia M99.01 Segmental and somatic dysfunction of cervical region 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 Office Visit 06/18/2018 9:15a Main Office Solomon Colmenares, G89.28 Other chronic as Of 11/14/13 DO, MPH postprocedural pain M54.2 Cervicalgia M99.01 Segmental and somatic dysfunction of cervical region M54.6 Pain in thoracic spine M99.02 Segmental and somatic dysfunction of thoracic region M54.5 Low back pain M99.03 Segmental and somatic dysfunction of lumbar region Z79.891 USP (current) use of opiate analgesic Office Visit 05/19/2018 10:45a Main Office Solomon Colmenares, G89.28 Other chronic as Of 11/14/13 DO, MPH postprocedural pain M54.2 Cervicalgia M99.01 Segmental and somatic dysfunction of cervical region M54.6 Pain in thoracic spine M99.02 Segmental and somatic dysfunction of thoracic region M54.5 Low back pain M99.03 Segmental and somatic dysfunction of lumbar region Z71.89 Other specified counseling Z79.891 USP (current) use of opiate analgesic Office Visit 04/11/2018 2:00p Main Office Solomon Colmenares, G89.28 Other chronic as Of 11/14/13 DO, MPH postprocedural pain M54.2 Cervicalgia M99.01 Segmental and somatic dysfunction of cervical region M54.6 Pain in thoracic spine M99.02 Segmental and somatic dysfunction of thoracic region M54.5 Low back pain M99.03 Segmental and somatic dysfunction of lumbar region M53.3 Sacrococcygeal disorders, not elsewhere classified M99.04 Segmental and somatic dysfunction of sacral region M25.551 Pain in right hip M25.552 Pain in left hip M99.05 Segmental and somatic dysfunction of pelvic region Z79.891 USP (current) use of opiate analgesic Z71.89 Other specified counseling Office Visit 03/19/2018 4:00p Main Office Solomon Colmenares, G89.28 Other chronic as Of 11/14/13 DO, MPH postprocedural pain M54.5 Low back pain M99.03 Segmental and somatic dysfunction of lumbar region M54.2 Cervicalgia M99.01 Segmental and somatic dysfunction of cervical region M54.6 Pain in thoracic spine M99.02 Segmental and somatic dysfunction of thoracic region Z79.891 USP (current) use of opiate analgesic Office Visit 02/11/2018 2:45p Main Office Solomon Colmenares G89.28 Other chronic as Of 11/14/13 DO, MPH postprocedural pain M54.5 Low back pain M54.6 Pain in thoracic spine M54.2 Cervicalgia M25.551 Pain in right hip Z71.89 Other specified counseling Z79.891 USP (current) use of opiate analgesic Office Visit 01/16/2018 10:00a Main Office Solomon Colmenares G89.28 Other chronic as Of 11/14/13 DO, MPH postprocedural pain M54.5 Low back pain M99.03 Segmental and somatic dysfunction of lumbar region M54.6 Pain in thoracic spine M99.02 Segmental and somatic dysfunction of thoracic region M54.2 Cervicalgia M99.01 Segmental and somatic dysfunction of cervical region M53.3 Sacrococcygeal disorders, not elsewhere classified M99.04 Segmental and somatic dysfunction of sacral region M25.551 Pain in right hip M99.05 Segmental and somatic dysfunction of pelvic region 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 Z71.89 Other specified counseling Office Visit 01/01/2018 2:45p Main Office Solomon Colmenares G89.28 Other chronic as Of 11/14/13 DO, MPH postprocedural pain M54.5 Low back pain M54.2 Cervicalgia R53.83 Other fatigue 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 Z71.89 Other specified counseling Office Visit 12/02/2017 3:15p Main Office Solomon Colmenares G89.28 Other chronic as Of 11/14/13 DO, MPH postprocedural pain M54.5 Low back pain M99.03 Segmental and somatic dysfunction of lumbar region M54.6 Pain in thoracic spine M54.2 Cervicalgia M99.01 Segmental and somatic dysfunction of cervical region M53.3 Sacrococcygeal disorders, not elsewhere classified M99.04 Segmental and somatic dysfunction of sacral region M25.551 Pain in right hip M99.05 Segmental and somatic dysfunction of pelvic region 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 R53.83 Other fatigue Office Visit 11/01/2017 1:15p Main Office ColmenaresSolomon begum, G89.28 Other chronic as Of 11/14/13 DO, MPH postprocedural pain M54.2 Cervicalgia M99.01 Segmental and somatic dysfunction of cervical region M54.6 Pain in thoracic spine M99.02 Segmental and somatic dysfunction of thoracic region M54.5 Low back pain M99.03 Segmental and somatic dysfunction of lumbar region M99.04 Segmental and somatic dysfunction of sacral region Z79.891 USP (current) use of opiate analgesic F17.210 Nicotine dependence, cigarettes, uncomplicated Office Visit 10/02/2017 4:30p Main Office ColmenaresSolomon begum, G89.28 Other chronic as Of 11/14/13 DO, MPH postprocedural pain M54.2 Cervicalgia M54.5 Low back pain M54.6 Pain in thoracic spine 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 Office Visit 09/03/2017 4:00p Main Office Solomon Colmenares, G89.28 Other chronic as Of 11/14/13 DO, MPH postprocedural pain M54.2 Cervicalgia M54.5 Low back pain M99.01 Segmental and somatic dysfunction of cervical region M54.6 Pain in thoracic spine M99.02 Segmental and somatic dysfunction of thoracic region M99.03 Segmental and somatic dysfunction of lumbar region 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 Office Visit 08/01/2017 4:00p Main Office ColmenaresSolomon begum, G89.28 Other chronic as Of 11/14/13 DO, MPH postprocedural pain M54.2 Cervicalgia M54.6 Pain in thoracic spine M54.5 Low back pain M54.16 Radiculopathy, lumbar region 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 Office Visit 07/04/2017 3:45p Main Office Solomon Colmenares G89.28 Other chronic as Of 11/14/13 DO, MPH postprocedural pain M54.5 Low back pain M99.03 Segmental and somatic dysfunction of lumbar region M54.16 Radiculopathy, lumbar region M54.6 Pain in thoracic spine M99.02 Segmental and somatic dysfunction of thoracic region M54.2 Cervicalgia M99.01 Segmental and somatic dysfunction of cervical region Z96.89 Presence of other specified functional implants Z79.891 USP (current) use of opiate analgesic Office Visit 06/05/2017 2:45p Main Office Jose G89.28 Other chronic as Of 11/14/13 CieloGAMA postprocedural pain M54.5 Low back pain M54.16 Radiculopathy, lumbar region Z71.89 Other specified counseling 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 Office Visit 05/06/2017 3:30p Main Office Solomon Colmenares G89.28 Other chronic as Of 11/14/13 DO, MPH postprocedural pain M54.5 Low back pain M99.03 Segmental and somatic dysfunction of lumbar region M54.6 Pain in thoracic spine M99.02 Segmental and somatic dysfunction of thoracic region M54.2 Cervicalgia M99.01 Segmental and somatic dysfunction of cervical region M79.1 Myalgia 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 Office Visit 04/05/2017 11:15a Main Office as Solomon Colmenares G89.29 Other chronic Of 11/14/13 DO, MPH pain M54.5 Low back pain M79.671 Pain in right foot Z79.891 USP (current) use of opiate analgesic Office Visit 03/19/2017 11:15a Main Office as Solomon Colmenares G89.29 Other chronic Of 11/14/13 DO, MPH pain M54.5 Low back pain M99.03 Segmental and somatic dysfunction of lumbar region Z96.89 Presence of other specified functional implants M79.1 Myalgia Z79.4 USP (current) use of insulin 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 Office Visit 02/19/2017 3:45p Main Office as Solomon Colmenares G89.29 Other chronic Of 11/14/13 DO, MPH pain M54.5 Low back pain Z96.89 Presence of other specified functional implants 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 Office Visit 01/22/2017 3:30p Main Office as Solomon Colmenares G89.29 Other chronic Of 11/14/13 DO, MPH pain M54.5 Low back pain Z96.89 Presence of other specified functional implants M79.1 Myalgia M65.88 Other synovitis and tenosynovitis, other site M46.07 Spinal enthesopathy, lumbosacral region Z79.4 vermin exterminator (current) use of insulin 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 Office Visit 12/31/2016 4:00p Main Office as Solomon Colmenares G89.29 Other chronic Of 11/14/13 DO, MPH pain M54.5 Low back pain Z96.89 Presence of other specified functional implants M54.16 Radiculopathy, lumbar region M79.1 Myalgia M65.88 Other synovitis and tenosynovitis, other site M46.07 Spinal enthesopathy, lumbosacral region Z79.4 USP (current) use of insulin Z79.891 USP (current) use of opiate analgesic Office Visit 12/18/2016 3:15p Main Office as Solomon Colmenares G89.29 Other chronic Of 11/14/13 DO, MPH pain M54.5 Low back pain Z96.89 Presence of other specified functional implants K21.9 Gastro-esophageal reflux disease without esophagitis I10 Essential (primary) hypertension F41.1 Generalized anxiety disorder Z79.4 vermin exterminator (current) use of insulin Office Visit 12/05/2016 9:00a Main Office as Solomon Colmenraes G89.29 Other chronic Of 11/14/13 DO, MPH pain M54.5 Low back pain Z96.89 Presence of other specified functional implants Z79.4 USP (current) use of insulin F33.8 Other recurrent depressive disorders Z79.891 USP (current) use of opiate analgesic Plan of Treatment Future Appointment(s):05/12/2019 9:30 am - Solomon Colmenares DO, MPH at Main Office as Of 11/14/1406 - Solomon Colmenares DO, MPHG89.28 Other chronic postprocedural painComments:Chronic. Symptoms and complaints discussed and reviewed today. No significant changes in physical findings. Continue current medical pain management.M54.6 Pain in thoracic spineComments:Chronic. Symptoms and complaints discussed and reviewed today. Notable thoracic somatic dysfunctionswarranting OMT. Patient is stable and comfortable when current medical therapy is rendered.M99.02 Segmental and somatic dysfunction of thoracic regionComments:Chronic. Symptoms and complaints discussed and reviewed today. Notable somatic dysfunctions noted warranting OMT. Continue current medical pain management and OMT. [id number]. OMT performed after evaluation. HVLA.M54.5 Low back painComments:Chronic. Symptoms and complaints discussed and reviewed today. Notable somatic dysfunctions warranting OMT. Patient is stable and comfortable with current medical therapy.M99.03 Segmental and somatic dysfunction of lumbar regionComments:Chronic. Symptoms and complaints discussed and reviewed today. Lumbar somatic dysfunctions noted warranting OMT. Continue current medical pain management and OMT. [id number]. OMT performed after evaluation. HVLA.M54.2 CervicalgiaComments:Chronic. Symptoms and complaints discussed and reviewed today. Notable somatic dysfunctions warranting OMT to cervicals. Patient is stable and comfortable with current medical therapy.M99.01 Segmental and somatic dysfunction of cervical regionComments: Chronic. Symptoms and complaints discussed and reviewed today. Somatic dysfunctions noted warrantingOMT. Continue current medical pain management and OMT. [id number]. OMT performed.M53.3 Sacrococcygeal disorders, not elsewhere classifiedComments:Chronic. Symptoms and complaints discussed and reviewed today. Notable sacral somatic dysfunctions warranting OMT. Patient is stable and comfortable with current medical therapy.M99.04 Segmental and somatic dysfunction of sacral regionComments:Chronic. Symptoms and complaints discussed and reviewed today. Sacral somatic dysfunctions noted warranting OMT. Continue current medical pain management and OMT. Sacral Torsion. OMT performed after evaluation. HVLA.R10.2 Pelvic and perineal painComments:Chronic. Symptoms and complaints discussed and reviewed today. No significant changes in physical findings. Continue current medical pain management. Osteopathic Manipulation performed.Z79.891 USP (current) use of opiate analgesicNew Labs:Urine Drug Screen, Ordered: 04/13/19Comments:Urine drug screen sample taken today to monitor opiate use and to monitor use of illicit substances.Will discuss results at next appointment.The following tests were ordered:6 AM, AMPH, SORIN, SHARI, BUP, CARIS, COCM, COT, ETG, FENT, MCSHSG, OPI, OXY, PCP, TAPEN, XTSY, ZOLP. A urine drug test (UDT) was ordered for this patient and collected on site today. Creatinine has been ordered as well for specimen validity, not for kidney function. Preliminary UDT results are not final and should not be used to determine patient care or plan of treatment. Initially a qualitative immunoassay screen will be done. Any inconsistent or positive findings will be further tested with a more comprehensive quantitative confirmation LCMS study. It is part of the treatment process of prescribing controlled substances and is considered standard of care.M99.05 Segmental and somatic dysfunction of pelvic regionComments:Chronic. Symptoms and complaints discussed and reviewed today. Pelvic somatic dysfunctions noted warranting OMT. Continue current medical pain management and OMT. Pelvic Shear. OMT performed. LISSETHR. DEDELA.Z56.6 Other physical and mental strain related to workComments:Reassurance and Counseling provided. Followed by PCP and psychiatric counseling. Will follow in regards to pain management, medications and associated treatments.F31.89 Other bipolar disorderComments:Chronic. Symptoms and complaints discussed and reviewed today. No significant changes in physical findings. Continue current medical pain management. Followed by PCP and psychiatric counseling. Will follow in regards to pain management, medications and associated treatments.Z71.89 Other specified counselingComments:Patient counseled to not use substances for pain relief other than those prescribed, to follow directions and to take medications only as they are prescribed. Urged to monitor her activity. Patientclearly understands and agrees. I will perform confirmatory labs and monitor closely.AllComments:Continue current medical pain management; injection therapy, osteopathic manipulation, PT / modalities, and consults as needed to manage chronic pain.Non - opioid pain management discussed and optionsdiscussed.Side effects discussed; anticipatory guidance given. Patient clearly understand and agree with all medical treatments and suggestions. All medicines prescribed are adequate and appropriate for this patient's complaint of pain, medical history, physical, and personal goals.Goals of Treatment are to provide adequate and appropriate multidisciplinary medical pain management to increase/ maintain patient's quality of life and functionality while maintaining satisfactory side effect profile andminimizing care home end-organ damage. Importance of regular nutrition throughout the day discussed.Activity as toleratedContinue with PCP
--- NOTE | 2019-05-05 13:10 | ED ---
Throat Pain/Nasal Congestion - HPI Summary HPI Summary: Pt is a 43 y/o M presenting to the ED with a chief complaint of dental issues. He states he broke a front bottom tooth on 05/02/19. He states he noticed swelling and pain a couple of days ago, and the pain has since worsened and spread to his upper L jaw. He denies SOB or trouble swallowing. He has a dentist appointment on 05/11/19 to take care of the tooth but he wanted to come in for abx today. No fevers, trouble opening his mouth. He has planned extraction of molars as well w/ dentist. - History of Current Complaint Chief Complaint: EDDentalPain Time Seen by Provider: 05/05/19 12:46 Hx Obtained From: Patient Onset/Duration: Sudden Onset, Lasting Days, Still Present Severity: Mild Associated Signs And Symptoms: Positive: Negative - Allergies/Home Medications Allergies/Adverse Reactions: Allergies Allergy/AdvReac Type Severity Reaction Status Date / Time morphine Allergy Unknown Verified 10/16/18 16:24 Reaction Details shellfish derived Allergy Anaphylatic Verified 10/16/18 05:20 Shock PMH/Surg Hx/FS Hx/Imm Hx Previously Healthy: Yes Endocrine/Hematology History: Reports: Hx Diabetes - dx 10 years ago Cardiovascular History: Comment Only: Hx Hypertension - States his blood pressure has "always been high", no current or past Rx, Other Cardiovascular Problems/Disorders - States he had a cardiac catheterization 11-12 years ago Respiratory History: Denies: Hx Asthma Musculoskeletal History: Reports: Hx Back Problems Sensory History: Denies: Hx Contacts or Glasses, Hx Hearing Aid Opthamlomology History: Denies: Hx Contacts or Glasses Psychiatric History: Reports: Hx Anxiety, Hx Depression, Hx of Violent Episodes Against Others Denies: Hx Eating Disorder - Surgical History Surgery Procedure, Year, and Place: Nerve stimulator. spinal fusion. bilateral carpal tunnel Infectious Disease History: No Infectious Disease History: Denies: Hx Clostridium Difficile, Hx Hepatitis, Hx Human Immunodeficiency Virus (HIV), Hx of Known/Suspected MRSA, Hx Shingles, Hx Tuberculosis, Hx Known/ Suspected VRE, Hx Known/Suspected VRSA, History Other Infectious Disease, Traveled Outside the [place] in Last 30 Days - Family History Known Family History: Positive: Cardiac Disease - Social History Alcohol Use: None Alcohol Amount: sober x 8 years Hx Substance Use: Yes Substance Use Type: Reports: None Substance Use Comment - Amount & Last Used: norco Hx Tobacco Use: No Smoking Status (MU): Light Every Day Tobacco Smoker Type: Cigarettes Amount Used/How Often: 1/2 PPD Length of Time of Smoking/Using Tobacco: 25 years Have You Smoked in the Last Year: Yes Review of Systems Positive: Dental Pain. Negative: Other - trouble swallowing Negative: Shortness Of Breath Positive: Edema - mouth/jaw All Other Systems Reviewed And Are Negative: Yes Physical Exam - Summary Physical Exam Summary: Constitutional: Well-developed, Well-nourished, Alert. (-) Distressed Skin: Warm, Dry HENT: Normocephalic; Atraumatic. L lower lateral incisor is cracked, no surrounding erythema or abscess. No trismus. Mild swelling of the left cheek Eyes: Conjunctiva normal Neck: Musculoskeletal ROM normal neck. (-) Stridor Cardio: Rhythm regular, rate normal, Heart sounds normal Pulmonary/Chest wall: Effort normal. (-) Respiratory distress, (-) Wheezes, (-) Rales Musculoskeletal: (-) Edema Lymph: (-) Cervical adenopathy Neuro: Alert, Oriented x3 Psych: Mood and affect Normal Triage Information Reviewed: Yes Vital Signs On Initial Exam: Initial Vitals Temp Pulse Resp BP Pulse Ox 98.4 F 79 18 156/104 98 05/05/19 12:26 05/05/19 12:26 05/05/19 12:26 05/05/19 12:26 05/05/19 12:26 Vital Signs Reviewed: Yes Diagnostics - Vital Signs Vital Signs Temp Pulse Resp BP Pulse Ox 05/05/19 12:26 98.4 F 79 18 156/104 98 - Laboratory Lab Statement: Any lab studies that have been ordered have been reviewed, and results considered in the medical decision making process. EENT Course/Dx - Course Course Of Treatment: 43-year-old male with dental pain and mild facial swelling for 1 day. Physical exam shows cracked lateral incisor on the left side. No trismus, no obvious abscess. Patient has dental appointment next Saturday. Discussed with patient that if he has worsening of his swelling, pain and inability to open his mouth, eat or drink, or difficulty breathing he needs return to the emergency department for a CT scan. Plan for discharge with penicillin 500, 4 times daily and Motrin 800 as needed. - Diagnoses Provider Diagnoses: Tooth pain Discharge - Sign-Out/Discharge Documenting (check all that apply): Patient Departure Patient Received Moderate/Deep Sedation with Procedure: No - Discharge Plan Condition: Stable Disposition: HOME Prescriptions: Ibuprofen TAB* [Motrin TAB* 800 MG] 800 mg PO Q6H PRN 10 Days #30 tab PRN Reason: Pain Penicillin VK 500 MG TAB(NF) [Penicillin VK 500 mg Tab] 500 mg PO QID 7 Days # 28 tab Patient Education Materials: Toothache (ED) Referrals: Greer Augustin PA [Primary Care Provider] - Additional Instructions: Please follow up with your dentist on Saturday at 11:45 as you already have planned. Take your medications as instructed. Return to the emergency department for worsening pain, increased swelling, trouble swallowing or breathing or for any new or worsening symptoms. - Billing Disposition and Condition Condition: STABLE Disposition: Home - Attestation Statements Document Initiated by Scribe: Yes Documenting Scribe: Francheska Bettencourt Provider For Whom Chyna is Documenting (Include Credential): Chepe Adamson MD. Scribe Attestation: Francheska Hutchison, scribed for Chepe Adamson MD. on 05/05/19 at 1327. Scribe Documentation Reviewed: Yes Provider Attestation: The documentation as recorded by the angelaibFrancheska perez accurately reflects the service I personally performed and the decisions made by Chepe elam MD. Status of Scribe Document: Viewed
[2019-05-05 13:26] VITALS: BP 154/87
== END 2019-05-05 13:21 | disposition home or self-care (01) ==
LOC: ED 12:24
DX: K08.89 Other specified disorders of teeth and supporting structures (principal); K03.81 Cracked tooth; R60.0 Localized edema; E11.9 Type 2 diabetes mellitus without complications; I10 Essential (primary) hypertension; Z88.5 Allergy status to narcotic agent; Z91.013 Allergy to seafood; F17.210 Nicotine dependence, cigarettes, uncomplicated
CPT/HCPCS: 99282

== ENCOUNTER 2019-06-14 15:00 | Emergency (ER) | payer OTHER ==
--- NOTE | 2019-06-14 15:24 | ED ---
Lower Extremity - HPI Summary HPI Summary: This patient is a 43 year old M presenting to [facility] with a chief complaint of right hip pain since night of 06/10/19. His daughter jumped on his back, and he fell and hit his right hip. Pt has been limping and is in pain. He does not want any medication. Pt had a disk removed, and has a internal stimulator, which is working fine. Per triage, the patient rates the pain 9/10 in severity. Symptoms aggravated by walking. Symptoms alleviated by standing upright. - History of Current Complaint Chief Complaint: EDBackInjuryPain Stated Complaint: LOW SPINE PAIN HIP PAIN PER PT Time Seen by Provider: 06/14/19 15:12 Hx Obtained From: Patient Mechanism Of Injury: Fall From A Standing Position Onset of Pain: Post Accident Onset/Duration: Still Present Severity Initially: Severe Severity Currently: Severe Pain Intensity: 9 Pain Scale Used: 0-10 Numeric Timing: Constant Location: Is Discrete @ - R hip Associated Signs And Symptoms: Positive: Negative Aggravating Factor(s): Ambulation Alleviating Factor(s): Other - standing upright Able to Bear Weight: Yes - Allergies/Home Medications Allergies/Adverse Reactions: Allergies Allergy/AdvReac Type Severity Reaction Status Date / Time morphine Allergy Unknown Verified 10/16/18 16:24 Reaction Details shellfish derived Allergy Anaphylatic Verified 10/16/18 05:20 Shock Home Medications: Home Medications [place] Carbonate ER TAB* 1,200 mg PO BEDTIME 06/14/19 [History Confirmed ] Oxycodone HCl 1 - 2 tab PO Q4H 06/14/19 [History Confirmed 06/14/19] Tadalafil 1 tab PO BEDTIME 06/14/19 [History Confirmed 06/14/19] traZODone TAB* [Desyrel TAB*] 50 mg PO BEDTIME 06/14/19 [History Confirmed 06/14] PMH/Surg Hx/FS Hx/Imm Hx Endocrine/Hematology History: Reports: Hx Diabetes - dx 10 years ago Cardiovascular History: Comment Only: Hx Hypertension - States his blood pressure has "always been high", no current or past Rx, Other Cardiovascular Problems/Disorders - States he had a cardiac catheterization 11-12 years ago Respiratory History: Denies: Hx Asthma Musculoskeletal History: Reports: Hx Back Problems Sensory History: Denies: Hx Contacts or Glasses, Hx Hearing Aid Opthamlomology History: Denies: Hx Contacts or Glasses Psychiatric History: Reports: Hx Anxiety, Hx Depression, Hx of Violent Episodes Against Others Denies: Hx Eating Disorder - Surgical History Surgery Procedure, Year, and Place: Nerve stimulator. spinal fusion. bilateral carpal tunnel Infectious Disease History: No Infectious Disease History: Denies: Hx Clostridium Difficile, Hx Hepatitis, Hx Human Immunodeficiency Virus (HIV), Hx of Known/Suspected MRSA, Hx Shingles, Hx Tuberculosis, Hx Known/ Suspected VRE, Hx Known/Suspected VRSA, History Other Infectious Disease, Traveled Outside the [place] in Last 30 Days - Family History Known Family History: Positive: Cardiac Disease - Social History Alcohol Use: None Alcohol Amount: sober x 8 years Hx Substance Use: Yes Substance Use Type: Reports: None Substance Use Comment - Amount & Last Used: norco Hx Tobacco Use: No Smoking Status (MU): Light Every Day Tobacco Smoker Type: Cigarettes Amount Used/How Often: 1/2 PPD Length of Time of Smoking/Using Tobacco: 25 years Have You Smoked in the Last Year: Yes Review of Systems Negative: Fever Positive: Other - right hip pain All Other Systems Reviewed And Are Negative: Yes Physical Exam - Summary Physical Exam Summary: Appearance: The patient is well-nourished in no acute distress and in no acute pain. Skin: The skin is warm and dry, and skin color reflects adequate perfusion. HEENT: The head is normocephalic and atraumatic. The pupils are equal and reactive. The conjunctivae are clear and without drainage. Nares are patent and without drainage. Mouth reveals moist mucous membranes, and the throat is without erythema and exudate. The external ears are intact. The ear canals are patent and without drainage. The tympanic membranes are intact. Neck: The neck is supple with full range of motion and non-tender. There are no carotid bruits. There is no neck vein distension. Respiratory: Chest is non-tender. Lungs are clear to auscultation and breath sounds are symmetrical and equal. Cardiovascular: Heart is regular rate and rhythm. There is no murmur or rub auscultated. There is no peripheral edema and pulses are symmetrical and equal. Abdomen: The abdomen is soft and non-tender. There are normal bowel sounds heard in all four quadrants and there is no organomegaly palpated. Musculoskeletal: There is good capillary refill. There is no peripheral edema or calf tenderness elicited. Tender in sciatic area on right side Neurological: Patient is alert and oriented to person, place and time. The patient has symmetrical motor strength in all four extremities. Cranial nerves are grossly intact. Deep tendon reflexes are symmetrical and equal in all four extremities. Psychiatric: The patient has an appropriate affect and does not exhibit any anxiety or depression. Triage Information Reviewed: Yes Vital Signs On Initial Exam: Initial Vitals Temp Pulse Resp BP Pulse Ox 97.5 F 64 16 138/94 99 06/14/19 15:04 06/14/19 15:04 06/14/19 15:04 06/14/19 15:04 06/14/19 15:04 Vital Signs Reviewed: Yes Diagnostics - Vital Signs Vital Signs Temp Pulse Resp BP Pulse Ox 06/14/19 15:04 97.5 F 64 16 138/94 99 - Laboratory Lab Statement: Any lab studies that have been ordered have been reviewed, and results considered in the medical decision making process. - CT Lumbar Spine CT CT Interpretation Completed By: Radiologist Summary of CT Findings: Lumbar Spine CT reveals, per radiologist, IMPRESSION: Neurostimulator leads in place. No bony injury is definitively identified. Overall no changes noted since May 28, 2015. No definite hardware failure is noted. ED physician has reviewed this radiology report. Re-Evaluation - Re-Evaluation First Eval Re-Evaluation Time: 14:22 Comment: Discussed results. Lower Extremity Course/Dx - Course Course Of Treatment: Mr. Callejas fell a couple nights ago and is increased low back pain. He has a lot of hardware in his back and is concerned that something isn't right. He was nontoxic in appearance with stable vitals and some right sciatic tenderness. CT was unremarkable. - Diagnoses Provider Diagnoses: Low back pain Discharge ED - Sign-Out/Discharge Documenting (check all that apply): Patient Departure - Discharge Patient Received Moderate/Deep Sedation with Procedure: No - Discharge Plan Condition: Stable Disposition: HOME Patient Education Materials: Low Back Strain (ED) Forms: *Work Release Referrals: Amena Way MD [Primary Care Provider] - 3 Days Additional Instructions: Follow up with Primary Care Physician in 2-3 days. RETURN TO THE ED FOR ANY NEW OR WORSENING SYMPTOMS. - Billing Disposition and Condition Condition: STABLE Disposition: Home - Attestation Statements Document Initiated by Scribe: Yes Documenting Scribe: Cynthia Ocasio Provider For Whom Scribe is Documenting (Include Credential): Zion Higuera MD Scribe Attestation: I, Cyntiha Ocasio, scribed for Zion Higuera MD on 06/14/19 at 1830. Scribe Documentation Reviewed: Yes Provider Attestation: The documentation as recorded by the scribe, Cynthia Ocasio accurately reflects the service I personally performed and the decisions made by me, Zion Higuera MD Status of Scribe Document: Viewed
--- OUTSIDE RECORDS SUMMARY | 2019-06-14 16:07 | XMS REPORT | Continuity of Care Document ---
:1975 External Reference #:[id number] Author Name Amena Way MD (transmitted by agent of provider Lou Mccord) Address [address], [place] [address] Care Team Providers Name Role Phone Lul Gao MD - Interventional Care Team Information Transmission Systems Operator Pain Medicine Rodney Nina MD - Neurological Care Team Information Transmission Systems Operator [phone] Surgery Ting Schwab MD - Neurology Care Team Information Transmission Systems Operator Cullen Rahman MD - Ophthalmology Care Team Information Transmission Systems Operator Amena Way M.D. - Family Medicine Care Team Information Transmission Systems Operator Problems Active Problems Provider Date Diabetes mellitus Victor Hugo Landaverde M.D. Onset: 05/31/2015 Chronic back pain Victor Hugo Landaverde M.D. Onset: 05/31/2015 Intervertebral disc disorder Victor Hugo Landaverde M.D. Onset: 05/31/2015 Severe major depression with psychotic Greer Marker, RPA-C Onset: 2018 features Social History Type Date Description Comments Sex Unknown ETOH Use Consumed 2 six packs of for 20 years. Quit beer per day in the 2007. past Tobacco Use Start: Unknown Patient is a current 20 years. Pt. is smoker, smokes every smoking about 1/2 day PPD. Recreational Drug Use Denies Drug Use Smoking Status Reviewed: 06/09/19 Patient is a current 20 years. Pt. is smoker, smokes every smoking about 1/2 day PPD. Exercise Type/Frequency Does not exercise Allergies, Adverse Reactions, Alerts Description No Known Drug Allergies Medications Active Medications SIG Qnty Indications Ordering Provider Date Ibuprofen take one tablet 45tabs K03.[address] MD 06/09/2019 800mg by mouth three Tablets times a day as needed Clindamycin HCL 1 by mouth three 21caps K03.[address] MD 06/09/2019 300mg times a day x Capsules 7days BD Pen use with the pen 90units Amena Way MD 04/30/2019 Needle/Mini/Ultra-Fi Basaglar as ne/31G X 5mm directed 31G X 5 mm Misc Gabapentin 1 pill tid as Solomon Colmenares, 100mg needed Capsules [place] Carbonate ER take 4 a day 180tabs Unknown 300mg Tablets ER Basaglar Kwikpen inject [address] MD nightly 100Unit/ML Solution Pen-Inject Trazodone HCL 1 by mouth every Unknown 50mg day Tablets History Medications Trulicity Inject 0.75mg once 2ml E11.[address], 02/18/2019 - weekly for 1 month 06/01/2019 0.75mg/0.5ML Solution Pen-Inject Trulicity inject 1 dose 2ml E11.[address], 02/18/2019 - subcutaneously once 06/08/2019 1.5mg/0.5ML weekly Solution Pen-Inject Tadalafil Take 30 minutes 15tabs N52.[address], 02/18/2019 - 5mg before needed. 06/01/2019 Tablets Flonase Allergy two sprays in each 15.800ml J37.[address], 02/18/2019 - Relief nostril 2 times 06/08/2019 50mcg/Act daily. Suspension Immunizations CPT Code Status Date Vaccine Lot # [id number] Given 10/12/2015 Influenza Virus Vaccine, Quadrivalent, Split, [id number] Preservative Free Vital Signs Date Vital Result Comment 06/09/2019 2:01pm Height 68.5 inches 5'8.50" Weight 184.25 lb Heart Rate 70 /min BP Systolic Sitting 116 mmHg Rue reg cuff BP Diastolic Sitting 74 mmHg Rue reg cuff O2 % BldC Oximetry 97 % BMI (Body Mass Index) 27.6 kg/m2 02/18/2019 1:34pm Height 68.5 inches 5'8.50" Weight 196.00 lb Heart Rate 90 /min BP Systolic Sitting 146 mmHg BP Diastolic Sitting 91 mmHg BMI (Body Mass Index) 29.4 kg/m2 Results Test Date Facility Test Result H/L Range Note Laboratory test finding 06/09/2019 [facility] In House Hemoglobin A1c 6.8 5-7 Laboratory test finding 02/18/2019 [facility] In House Hemoglobin A1c 10.5 High 5-7 Procedures Description No Information Available Medical Devices Description No Information Available Encounters Type Date Location Provider Dx Diagnosis Office Visit 02/18/2019 [facility] Internal Greer Marker, E11.65 Type 2 diabetes 1:40p Medicine - [facility] RPA-C mellitus with hyperglycemia F17.210 Nicotine dependence, cigarettes, uncomplicated N52.9 Male erectile dysfunction, unspecified J37.0 Chronic laryngitis Assessments Date Code Description Provider 06/09/2019 E11.65 Type 2 diabetes mellitus with hyperglycemia Amena Way MD 06/09/2019 K03.[address] MD 02/18/2019 E11.65 Type 2 diabetes mellitus with hyperglycemia Greer Marker , RPA-C 02/18/2019 F17.210 Nicotine dependence, cigarettes, Greer Marker, RPA-C uncomplicated 02/18/2019 N52.9 Male erectile dysfunction, unspecified Greer Marker, RPA- C 02/18/2019 J37.0 Chronic laryngitis Greer Marker, RPA-C Plan of Treatment Future Appointment(s):09/11/2019 2:00 pm - Amena Way MD at [facility] Internal Medicine - [facility]06/09/2019 - Amena Way MDE11.65 Type 2 diabetes mellitus with hyperglycemiaComments:Your A1c is down to 6.8%, continue with current regimen. Please get labs done before next visit!Follow up:3 mo diabetes f/ uK03.81 Cracked toothNew Medication:Ibuprofen 800 mg - take one tablet by mouth three times a day as neededClindamycin HCL 300 mg - 1 by mouth three times a day x 7days Functional Status Description No Information Available Mental Status Description No Information Available Referrals Refer to Reason for Referral Status Appt Date Azael De León MD intermitting laryngitis Received Partial 02/24/[address] [place] [phone]
[2019-06-14 16:34] VITALS: BP 115/89
== END 2019-06-14 16:32 | disposition home or self-care (01) ==
LOC: ED 15:00
DX: M54.5 Low back pain (principal); M25.551 Pain in right hip; F41.9 Anxiety disorder, unspecified; F32.9 Major depressive disorder, single episode, unspecified; F17.210 Nicotine dependence, cigarettes, uncomplicated; E11.9 Type 2 diabetes mellitus without complications; Z79.899 Other long term (current) drug therapy
CPT/HCPCS: 72131; 99282